=== PATIENT | male | born 1950 | race Asian ===

== ENCOUNTER 2019-01-22 16:48 | Inpatient (IN) | payer MEDICARE ==
[~2019-01-22] VITALS: Ht 144.8 cm; Wt 64.2 kg
[2019-01-22] MEDS ORDERED: IV NORMAL SALINE 1000ML BAG 1,000 ML IV SCH (17:10)
[2019-01-22] MEDS ORDERED: 0.9 % SODIUM CHLORIDE 10 ML DISP.SYRIN. IV PRN (17:15)
[2019-01-22] MEDS ORDERED: fentaNYL PF VIAL 100 MCG/2 ML VIAL IV PRN (17:15)
[2019-01-22] MEDS ORDERED: FAMOTIDINE 20 MG/2 ML VIAL IVP ONE (17:15)
[2019-01-22] MEDS ORDERED: ONDANSETRON PF 4 MG/2 ML VIAL. IV ONE (17:15)
--- NOTE | 2019-01-22 17:21 | PHYS DOC ---
Past Medical History Past Medical History: Depression, Diabetes-Type II, High Cholesterol, Hypertension (COLETTE DENISE APRN) Past Surgical History: Other (portion of small bowel removed) (COLETTE DENISE APRN) Drug Use: None (COLETTE DENISE APRN) Adult General Chief Complaint Chief Complaint: ABDOMINAL PAIN HPI HPI Patient is a 68 year old male who presents with family. Patient speaking [place], family translating, recently moved here from [place]. Family reports diffuse abdominal "burning" pain for several days. N/V/D No fevers. States he can not keep any foods down, able to take in fluids with medications. States he has burning abdominal pain with radiation up to the chest, burning CP. Chest pain started today Seen at 01/19. Labs and UA done, no acute finding. Prescribed Zofran. No c hange in symptoms he is resting in no distress (COLETTE DENISE APRN) Review of Systems Review of Systems Constitutional: Denies fever or chills [] Eyes: Denies change in visual acuity, redness, or eye pain [] HENT: Denies nasal congestion or sore throat [] Respiratory: Denies cough or shortness of breath [] Cardiovascular: C/o radiating pain from abdomen to chest GI: c/o diffuse abdominal pain with N/V/D : Denies dysuria or hematuria [] Musculoskeletal: Denies back pain or joint pain [] Integument: Denies rash or skin lesions [] Neurologic: Denies headache, focal weakness or sensory changes [] Endocrine: Denies polyuria or polydipsia [] All other systems were reviewed and found to be within normal limits, except as documented in this note. (COLETTE DENISE APRN) Current Medications Current Medications Current Medications Medications (Trade) Dose Ordered Sig/Salma Start Time Stop Time Status Last Admin Dose Admin Famotidine (Pepcid Vial) 20 mg 1X ONCE 01/22/19 17:15 01/22/19 17:27 DC 01/22/19 18:08 20 MG Fentanyl Citrate (Fentanyl 2ml Vial) 25 mcg PRN Q15MIN PRN 01/22/19 17:15 01/23/19 17:14 DC 01/22/19 18:08 25 MCG Info (CONTRAST GIVEN -- Rx MONITORING) 1 each PRN DAILY PRN 01/22/19 18:00 01/24/19 17:59 Iohexol (Omnipaque 300 Mg/ml) 60 ml 1X ONCE 01/22/19 18:00 01/22/19 18:01 DC 01/22/19 18:03 60 ML Ondansetron HCl (Zofran) 4 mg 1X ONCE 01/22/19 17:15 01/22/19 17:27 DC 01/22/19 18:07 4 MG Sodium Chloride (Normal Saline Flush) 10 ml QSHIFT PRN 01/22/19 17:15 (FRITZ LUNDBERG MD) Allergies Allergies Allergies Coded Allergies Type Severity Reaction Last Updated Verified No Known Drug Allergies 01/22/19 No (FRITZ LUNDBERG MD) Allergies NKDA (COLETTE DENISE APRN) Physical Exam Physical Exam Constitutional: Well developed, well nourished, no acute distress, non-toxic appearance. [] HENT: Normocephalic, atraumatic, bilateral external ears normal, oropharynx moist, no oral exudates, nose normal. [] Eyes: PERRLA, EOMI, conjunctiva normal, no discharge. [] Neck: Normal range of motion, no tenderness, supple, no stridor. [] Cardiovascular:Heart rate regular rhythm, no murmur [] Lungs & Thorax: Bilateral breath sounds clear to auscultation [] Abdomen: Bowel sounds normal, soft, no masses, no pulsatile masses. reports mild diffuse TTP, no guarding or rebound, no signs of trauma Skin: Warm, dry, no erythema, no rash. [] Back: No tenderness, no CVA tenderness. [] Extremities: No tenderness, no cyanosis, no clubbing, ROM intact, no edema. [] Neurologic: Alert and oriented X 3, normal motor function, normal sensory function, no focal deficits noted. [] Psychologic: Affect normal, judgement normal, mood normal. [] (COLETTE DENISE APRN) Current Patient Data Vital Signs Vital Signs Date Time Temp Pulse Resp B/P (MAP) Pulse Ox O2 Delivery O2 Flow Rate FiO2 01/22/19 18:00 62 162/74 (103) 99 Room Air 01/22/19 17:22 98.0 22 98.0 (FRITZ LUNDBERG MD) Lab Values Laboratory Tests Test 01/22/19 16:58 01/22/19 17:20 Urine Collection Type Unknown Urine Color Yellow Urine Clarity Clear Urine pH 6.5 Urine Specific [place] 1.015 Urine Protein Negative mg/dL (NEG-TRACE) Urine Glucose (UA) Negative mg/dL (NEG) Urine Ketones (Stick) 15 mg/dL (NEG) Urine Blood Negative (NEG) Urine Nitrite Negative (NEG) Urine Bilirubin Negative (NEG) Urine Urobilinogen Dipstick 1.0 mg/dL (0.2 mg/dL) Urine Leukocyte Esterase Trace (NEG) Urine RBC 0 /HPF (0-2) Urine WBC Rare /HPF (0-4) Urine Bacteria 0 /HPF (0-FEW) White Blood Count 8.1 x10^3/uL (4.0-11.0) Red Blood Count 4.75 x10^6/uL (4.30-5.70) Hemoglobin 13.7 g/dL (13.0-17.5) Hematocrit 39.5 % (39.0-53.0) Mean Corpuscular Volume 83 fL (79-100) Mean Corpuscular Hemoglobin 29 pg (25-35) Mean Corpuscular Hemoglobin Concent 35 g/dL (31-37) Red Cell Distribution Width 15.1 % (11.5-14.5) H Platelet Count 233 x10^3/uL (140-400) Neutrophils (%) (Auto) 73 % (31-73) Lymphocytes (%) (Auto) 18 % (24-48) L Monocytes (%) (Auto) 7 % (0-9) Eosinophils (%) (Auto) 1 % (0-3) Basophils (%) (Auto) 1 % (0-3) Neutrophils # (Auto) 6.0 x10^3/uL (1.8-7.7) Lymphocytes # (Auto) 1.5 x10^3/uL (1.0-4.8) Monocytes # (Auto) 0.6 x10^3/uL (0.0-1.1) Eosinophils # (Auto) 0.1 x10^3/uL (0.0-0.7) Basophils # (Auto) 0.0 x10^3/uL (0.0-0.2) Sodium Level 114 mmol/L (136-145) *L Potassium Level 5.1 mmol/L (3.5-5.1) Chloride Level 79 mmol/L (98-107) L Carbon Dioxide Level 25 mmol/L (21-32) Anion Gap 10 (6-14) Blood Urea Nitrogen 14 mg/dL (8-26) Creatinine 1.2 mg/dL (0.7-1.3) Estimated GFR (Cockcroft-Gault) 59.9 BUN/Creatinine Ratio 12 (6-20) Glucose Level 102 mg/dL (70-99) H Calcium Level 9.0 mg/dL (8.5-10.1) Total Bilirubin 1.0 mg/dL (0.2-1.0) Aspartate Amino Transferase (AST) 94 U/L (15-37) H Alanine Aminotransferase (ALT) 36 U/L (16-63) Alkaline Phosphatase 47 U/L (46-116) Troponin I Quantitative 0.037 ng/mL (0.000-0.055) MU-Nzg-V-Type Natriuretic Peptide 135 pg/mL (0-124) H Total Protein 8.2 g/dL (6.4-8.2) Albumin 4.1 g/dL (3.4-5.0) Albumin/Globulin Ratio 1.0 (1.0-1.7) Lipase 162 U/L (73-393) Laboratory Tests 01/22/19 17:20 Laboratory Tests 01/22/19 17:20 (FRITZ LUNDBERG MD) Lab Values Laboratory Tests Test 01/22/19 16:58 01/22/19 17:20 Urine Collection Type Unknown Urine Color Yellow Urine Clarity Clear Urine pH 6.5 Urine Specific [place] 1.015 Urine Protein Negative mg/dL (NEG-TRACE) Urine Glucose (UA) Negative mg/dL (NEG) Urine Ketones (Stick) 15 mg/dL (NEG) Urine Blood Negative (NEG) Urine Nitrite Negative (NEG) Urine Bilirubin Negative (NEG) Urine Urobilinogen Dipstick 1.0 mg/dL (0.2 mg/dL) Urine Leukocyte Esterase Trace (NEG) Urine RBC 0 /HPF (0-2) Urine WBC Rare /HPF (0-4) Urine Bacteria 0 /HPF (0-FEW) White Blood Count 8.1 x10^3/uL (4.0-11.0) Red Blood Count 4.75 x10^6/uL (4.30-5.70) Hemoglobin 13.7 g/dL (13.0-17.5) Hematocrit 39.5 % (39.0-53.0) Mean Corpuscular Volume 83 fL (79-100) Mean Corpuscular Hemoglobin 29 pg (25-35) Mean Corpuscular Hemoglobin Concent 35 g/dL (31-37) Red Cell Distribution Width 15.1 % (11.5-14.5) H Platelet Count 233 x10^3/uL (140-400) Neutrophils (%) (Auto) 73 % (31-73) Lymphocytes (%) (Auto) 18 % (24-48) L Monocytes (%) (Auto) 7 % (0-9) Eosinophils (%) (Auto) 1 % (0-3) Basophils (%) (Auto) 1 % (0-3) Neutrophils # (Auto) 6.0 x10^3/uL (1.8-7.7) Lymphocytes # (Auto) 1.5 x10^3/uL (1.0-4.8) Monocytes # (Auto) 0.6 x10^3/uL (0.0-1.1) Eosinophils # (Auto) 0.1 x10^3/uL (0.0-0.7) Basophils # (Auto) 0.0 x10^3/uL (0.0-0.2) Sodium Level 114 mmol/L (136-145) *L Potassium Level 5.1 mmol/L (3.5-5.1) Chloride Level 79 mmol/L (98-107) L Carbon Dioxide Level 25 mmol/L (21-32) Anion Gap 10 (6-14) Blood Urea Nitrogen 14 mg/dL (8-26) Creatinine 1.2 mg/dL (0.7-1.3) Estimated GFR (Cockcroft-Gault) 59.9 BUN/Creatinine Ratio 12 (6-20) Glucose Level 102 mg/dL (70-99) H Calcium Level 9.0 mg/dL (8.5-10.1) Total Bilirubin 1.0 mg/dL (0.2-1.0) Aspartate Amino Transferase (AST) 94 U/L (15-37) H Alanine Aminotransferase (ALT) 36 U/L (16-63) Alkaline Phosphatase 47 U/L (46-116) Troponin I Quantitative 0.037 ng/mL (0.000-0.055) KX-Idx-H-Type Natriuretic Peptide 135 pg/mL (0-124) H Total Protein 8.2 g/dL (6.4-8.2) Albumin 4.1 g/dL (3.4-5.0) Albumin/Globulin Ratio 1.0 (1.0-1.7) Lipase 162 U/L (73-393) Laboratory Tests 01/22/19 17:20 Laboratory Tests 01/22/19 17:20 (COLETTE DENISE APRN) EKG EKG []01/22/2019 1720 sinus rhythm, rate [address] changes (COLETTE DENISE APRN) Radiology/Procedures Radiology/Procedures []Signed PATIENT: JACOBY MARTINEZ ACCOUNT: [id number] : 1950 LOCATION: ER AGE: 68 SEX: M EXAM STATUS: REG ER ORD. PHYSICIAN: COLETTE DENISE APRN REASON: abd pain, vomiting PROCEDURE: CT ABD PELV W/ IV CONTRST ONLY PQRS Compliance statement: One or more of the following individualized dose reduction techniques were utilized for this examination: 1. Automated exposure control. 2. Adjustment of the mA and/or kV according to patient size. 3. Use of iterative reconstruction technique. Indication:Abdominal pain. Vomiting. TECHNIQUE: CT abdomen and pelvis with IV contrast with multiplanar reformats. COMPARISON: None FINDINGS: Heart is normal in size. No pericardial or pleural effusion. Right lower lobe pleural-based nodule measuring 6 mm. Liver, spleen, pancreas, adrenals within normal limits. Gallstones noted. No pericholecystic fluid or inflammatory changes. Multiple bilateral low attenuating lesions in the kidneys most likely simple cysts, the largest on the right side measuring 3.6 cm and on the left side measuring 2 cm. No nephrolithiasis or hydronephrosis. No enlarged retroperitoneal or pelvic adenopathy. No free pelvic fluid or ascites. Small bilateral fat-containing hernia. The prostate and seminal vesicles show no large mass. Left lateral urinary bladder diverticulum measuring 3.5 x 1.5 cm. Urinary bladder demonstrates no radiopaque stone. No bowel obstruction. Appendix is not visualized. No right lower quadrant inflammatory changes. Small sliding hiatal hernia. No pneumoperitoneum. No suspicious bony lesion. IMPRESSION: 1. Cholelithiasis without imaging evidence of acute cholecystitis. 2. No bowel obstruction. 3. No nephrolithiasis or hydronephrosis. 4. Left lateral urinary bladder diverticulum. 5. Right lower lobe pleural-based nodule. CT chest in 3-6 months is recommended. Electronically signed by: Chalo Antoine DO (01/22/2019 6:23 PM) [facility] CT HEAD: IMAGING REPORT Signed PATIENT: JACOBY MARTINEZ ACCOUNT: [id number] : 1950 LOCATION: [address] [place] [address] AGE: 68 SEX: M EXAM STATUS: ADM IN ORD. PHYSICIAN: COLETTE DENISE APRN REASON: hyponatremia, RIGHT SIDE EAR-HEAD PAIN. RECENT CT CONTRAST DYE. PROCEDURE: CT HEAD WO CONTRAST CT HEAD WO CONTRAST History: Hyponatremia, right ear and head pain Comparison: None. Technique: Noncontrast CT imaging was performed of the head. Exposure: One or more of the following individualized dose reduction techniques were utilized for this examination: 1. Automated exposure control 2. Adjustment of the mA and/or kV according to patient size 3. Use of iterative reconstruction technique. Findings: No acute extra-axial or parenchymal hemorrhage is identified. There is no significant intra-axial mass effect, midline shift, or extra-axial fluid collection. The gilliland-white differentiation of the major vascular territories is preserved. The ventricles, sulci, and cisterns are within normal limits in size and configuration. Mastoid air cells are overall aerated. There is atherosclerotic calcification of the carotid siphons bilaterally. There is probable mucosal thickening or mucous retention cysts of the right maxillary sinus. There is mild bilateral ethmoid air cell mucosal thickening. No acute calvarial abnormality is identified. Impression: 1. No acute intracranial abnormality is identified. 2. There is right maxillary sinus mucosal thickening or mucous retention cysts. Electronically signed by: Kyra Orellana MD (01/22/2019 7:32 PM) [facility] DICTATED and SIGNED BY: KYRA ORELLANA MD DATE: 01/22/191931 CHEST XRAY PATIENT: JACOBY MARTINEZ ACCOUNT: [id number] : 1950 LOCATION: [facility] ICU AGE: 68 SEX: M EXAM STATUS: ADM IN ORD. PHYSICIAN: COLETTE DENISE APRN REASON: Chest pain PROCEDURE: CHEST PA & LATERAL CHEST PA LATERAL History: Chest pain Comparison: None. Findings: 2 views of the chest are submitted. Pericardial cardiac silhouette is enlarged. There is no pneumothorax. There is no significant dependent pleural fluid. There is likely minimal atelectasis left lung base. Impression: 1. There is likely minimal atelectasis left lung base. Pericardial cardiac silhouette is enlarged. Electronically signed by: Kyra Orellana MD (01/22/2019 7:24 PM) [facility] DICTATED and SIGNED BY: KYRA ORELLANA MD DATE: 01/22/191923 (COLETTE DENISE APRN) Impressions: Abdominal pain, hyponatremia, chest pain (COLETTE DENISE APRN) Course & Med Decision Making Course & Med Decision Making Pertinent Labs and Imaging studies reviewed. (See chart for details) []Patient here with family, several day hx of diffuse abdominal pain with N/V/D and pain that radiates up to chest he is resting and appears well, no distress Will obtain labs, chest xray, EKG and CT ABD PELV IV fluids, fentanyl zofran pepcid Labs CT and xray reviewed Hyponatremia. Cholelithiasis Chest pain today, no ST changes on EKG Consulted Nephrology, Dr Melgar, add on urine electrolytes, agrees with CT head. NS 150cc hr, repeat BMP in 4 hours and nursing staff is to call with results Admitted to Hospitalist, Add on Ct Head, ICU CT head no acute finding (COLETTE DENISE APRN) Course & Med Decision Making I was not involved in the care of this patient after 1800 on 01/22/19. (FRITZ LUNDBERG MD) Dragon Disclaimer Dragon Disclaimer This electronic medical record was generated, in whole or in part, using a voice recognition dictation system. (COLETTE DENISE APRN) Departure Departure Impression: Primary Impression: Hyponatremia Additional Impressions: Abdominal pain Chest pain Disposition: ADMITTED INPATIENT Condition: STABLE Referrals: THI IVEY (PCP) Problem Qualifiers COLETTE DENISE APRN Jan 22, 2019 17:21 FRITZ LUNDBERG MD Jan 24, 2019 06:48
[2019-01-22 17:22] LABS: BILIRUBIN,URINE NEGATIVE (NEG); CLARITY,URINE CLEAR; COLOR,URINE YELLOW; NITRITE,URINE NEGATIVE (NEG); PH,URINE 6.5; PROTEIN,URINE NEGATIVE (NEG-TRACE)
[2019-01-22 17:27] LABS: BASO % 1 % (0-3); EOS # 0.1 x10^3/uL (0.0-0.7); EOS % 1 % (0-3); HEMATOCRIT 39.5 % (39.0-53.0); HEMOGLOBIN 13.7 g/dL (13.0-17.5); LYMPH # 1.5 x10^3/uL (1.0-4.8); LYMPH % 18 % (24-48); MEAN CORPUSCULAR HEMOGLOBIN 29 pg (25-35); MEAN CORPUSCULAR HGB CONC 35 g/dL (31-37); MEAN CORPUSCULAR VOLUME 83 fL (79-100); MONO # 0.6 x10^3/uL (0.0-1.1); MONO % 7 % (0-9); NEUT % 73 % (31-73); PLATELET COUNT 233 x10^3/uL (140-400); RED BLOOD COUNT 4.75 x10^6/uL (4.30-5.70); RED CELL DISTRIBUTION WIDTH 15.1 % (11.5-14.5); WHITE BLOOD COUNT 8.1 x10^3/uL (4.0-11.0)
[2019-01-22 17:30] LABS: BACTERIA,URINE 0 /HPF (0-FEW); RBC,URINE 0 /HPF (0-2); WBC,URINE RARE /HPF (0-4)
[2019-01-22 17:42] LABS: ALBUMIN 4.1 g/dL (3.4-5.0); CREATININE 1.2 mg/dL (0.7-1.3); GFR 59.9; POTASSIUM 5.1 mmol/L (3.5-5.1); TOTAL PROTEIN 8.2 g/dL (6.4-8.2)
[2019-01-22] MEDS ORDERED: CONTRAST GIVEN. MC PRN (18:00)
[2019-01-22] MEDS ORDERED: IOHEXOL 300 MG/ML 100ML VIAL. IV ONE (18:00)
--- NOTE | 2019-01-22 18:26 | RAD ---
PQRS Compliance statement: One or more of the following individualized dose reduction techniques were utilized for this examination: 1. Automated exposure control. 2. Adjustment of the mA and/or kV according to patient size. 3. Use of iterative reconstruction technique. Indication:Abdominal pain. Vomiting. TECHNIQUE: CT abdomen and pelvis with IV contrast with multiplanar reformats. COMPARISON: None FINDINGS: Heart is normal in size. No pericardial or pleural effusion. Right lower lobe pleural-based nodule measuring 6 mm. Liver, spleen, pancreas, adrenals within normal limits. Gallstones noted. No pericholecystic fluid or inflammatory changes. Multiple bilateral low attenuating lesions in the kidneys most likely simple cysts, the largest on the right side measuring 3.6 cm and on the left side measuring 2 cm. No nephrolithiasis or hydronephrosis. No enlarged retroperitoneal or pelvic adenopathy. No free pelvic fluid or ascites. Small bilateral fat-containing hernia. The prostate and seminal vesicles show no large mass. Left lateral urinary bladder diverticulum measuring 3.5 x 1.5 cm. Urinary bladder demonstrates no radiopaque stone. No bowel obstruction. Appendix is not visualized. No right lower quadrant inflammatory changes. Small sliding hiatal hernia. No pneumoperitoneum. No suspicious bony lesion. IMPRESSION: 1. Cholelithiasis without imaging evidence of acute cholecystitis. 2. No bowel obstruction. 3. No nephrolithiasis or hydronephrosis. 4. Left lateral urinary bladder diverticulum. 5. Right lower lobe pleural-based nodule. CT chest in 3-6 months is recommended. Electronically signed by: Chalo Antoine DO (01/22/2019 6:23 PM) [facility]
[2019-01-22] MEDS: IV NORMAL SALINE 1000ML BAG 1,000 ML IV SCH (18:56)
[2019-01-22] MEDS ORDERED: MORPHINE SULFATE 2 MG/ML VIAL. IV PRN (19:00)
[2019-01-22] MEDS ORDERED: IV NORMAL SALINE 1000ML BAG 1,000 ML IV ONE (19:00)
[2019-01-22] MEDS ORDERED: ONDANSETRON PF 4 MG/2 ML VIAL. IV PRN ×2 (19:00→19:30)
--- NOTE | 2019-01-22 19:27 | RAD ---
CHEST PA LATERAL History: Chest pain Comparison: None. Findings: 2 views of the chest are submitted. Pericardial cardiac silhouette is enlarged. There is no pneumothorax. There is no significant dependent pleural fluid. There is likely minimal atelectasis left lung base. Impression: 1. There is likely minimal atelectasis left lung base. Pericardial cardiac silhouette is enlarged. Electronically signed by: Donovan Orellana MD (01/22/2019 7:24 PM) [facility]
--- NOTE | 2019-01-22 19:34 | RAD ---
CT HEAD WO CONTRAST History: Hyponatremia, right ear and head pain Comparison: None. Technique: Noncontrast CT imaging was performed of the head. Exposure: One or more of the following individualized dose reduction techniques were utilized for this examination: 1. Automated exposure control 2. Adjustment of the mA and/or kV according to patient size 3. Use of iterative reconstruction technique. Findings: No acute extra-axial or parenchymal hemorrhage is identified. There is no significant intra-axial mass effect, midline shift, or extra-axial fluid collection. The gilliland-white differentiation of the major vascular territories is preserved. The ventricles, sulci, and cisterns are within normal limits in size and configuration. Mastoid air cells are overall aerated. There is atherosclerotic calcification of the carotid siphons bilaterally. There is probable mucosal thickening or mucous retention cysts of the right maxillary sinus. There is mild bilateral ethmoid air cell mucosal thickening. No acute calvarial abnormality is identified. Impression: 1. No acute intracranial abnormality is identified. 2. There is right maxillary sinus mucosal thickening or mucous retention cysts. Electronically signed by: Donovan Orellana MD (01/22/2019 7:32 PM) [facility]
[2019-01-22 20:00] VITALS: BP 165/84
[2019-01-22] MEDS ORDERED: ENOXAPARIN 40 MG/0.4 ML SYRINGE. SQ ONE ×2 (20:00→21:19)
[2019-01-22] MEDS ORDERED: LISI2.5T PO (20:21)
[2019-01-22] MEDS ORDERED: SERT50TA PO (20:21)
[2019-01-22] MEDS ORDERED: ONDA8TAB9 PO (20:21)
[2019-01-22] MEDS ORDERED: METF500T16 PO (20:21)
[2019-01-22] MEDS ORDERED: CETI10TA16 PO (20:21)
[2019-01-22] MEDS ORDERED: ATOR20TA58 PO (20:21)
[2019-01-22] MEDS ORDERED: LEVO125T5 PO (20:21)
[2019-01-22 21:00] VITALS: BP 118/67
[2019-01-22 22:00] VITALS: BP 143/77
[2019-01-22 23:00] VITALS: BP 130/63
[2019-01-23] VITALS (18 sets, daily range): BP systolic 108–145; BP diastolic 55–99
[2019-01-23] MEDS: IV NORMAL SALINE 1000ML BAG 1,000 ML IV SCH ×3 (01:54→16:40)
[2019-01-23 02:37] LABS: CALCIUM 8.5 mg/dL (8.5-10.1); CREATININE 1.2 mg/dL (0.7-1.3); GFR 59.9; POTASSIUM 4.9 mmol/L (3.5-5.1)
--- NOTE | 2019-01-23 08:42 | PDOC1 ---
History and Physical Date of Admission Date of Admission DATE: 01/23/19 TIME: 08:42 History of Present Illness History of Present Illness Mr. Saleem, is a 68 year old male who presents with family. Patient speaking Chente, family translating, recently moved here from [place]. Family reports diffuse abdominal "burning" pain for several days. N/V/D No fevers. States he can not keep any foods down, able to take in fluids with medications. States he has burning abdominal pain with radiation up to the chest, burning CP. Chest pain started today Seen at 01/19. Labs and UA done, no acute finding. Prescribed Zofran. No change in symptoms he is resting in no distress Past Medical History Cardiovascular: No pertinent hx Pulmonary: No pertinent hx GI: No pertinent hx Heme/Onc: No pertinent hx Hepatobiliary: No pertinent hx Psych: No pertinent hx Infectious disease: No pertinent hx Past Surgical History Past Surgical History: No pertinent history Family History Family History: No Significant Social History Smoke: No ALCOHOL: none Drugs: None Current Problem List Problem List Problems Medical Problems: (1) Chest pain Status: Acute (2) Hyponatremia Status: Acute Current Medications Current Medications Current Medications Fentanyl Citrate (Fentanyl 2ml Vial) 25 mcg PRN Q15MIN PRN IV PAIN GREATER THAN 3/10 Last administered on 01/22/19at 18:08; Start 01/22/19 at 17:15; Stop 01/23/19 at 17:14 Sodium Chloride 1,000 ml @ 1,000 mls/hr Q1H IV ; Start 01/22/19 at 17:10; Stop 01/22/19 at 18:09; Status DC Sodium Chloride (Normal Saline Flush) 10 ml QSHIFT PRN IV AFTER MEDS AND BLOOD DRAWS; Start 01/22/19 at 17:15 Ondansetron HCl (Zofran) 4 mg 1X ONCE IV Last administered on 01/22/19at 18:07; Start 01/22/19 at 17:15; Stop 01/22/19 at 17:27; Status DC Famotidine (Pepcid Vial) 20 mg 1X ONCE IVP Last administered on 01/22/19at 1 8:08; Start 01/22/19 at 17:15; Stop 01/22/19 at 17:27; Status DC Iohexol (Omnipaque 300 Mg/ml) 60 ml 1X ONCE IV Last administered on 01/22/19at 18:03; Start 01/22/19 at 18:00; Stop 01/22/19 at 18:01; Status DC Info (CONTRAST GIVEN -- Rx MONITORING) 1 each PRN DAILY PRN MC SEE COMMENTS; Start 01/22/19 at 18:00; Stop 01/24/19 at 17:59 Sodium Chloride 1,000 ml @ 150 mls/hr 1X ONCE IV Last administered on 01/22/19at 19:00; Start 01/22/19 at 19:00; Stop 01/23/19 at 02:44; Status DC Ondansetron HCl (Zofran) 4 mg PRN Q8HRS PRN IV NAUSEA/VOMITING; Start 01/22/19 at 19:00; Stop 01/22/19 at 19:32; Status DC Morphine Sulfate (Morphine Sulfate) 2 mg PRN Q2HR PRN IV PAIN; Start 01/22/19 at 19:00; Stop 01/23/19 at 18:59 Sodium Chloride 1,000 ml @ 150 mls/hr Q6H40M IV Last administered on 01/23/19at 01:54; Start 01/22/19 at 18:56; Stop 01/23/19 at 02:44; Status DC Ondansetron HCl (Zofran) 4 mg PRN Q6HRS PRN IV NAUSEA/VOMITING; Start 01/22/19 at 19:30 Enoxaparin Sodium (Lovenox 40mg Syringe) 40 mg DAILY ONCE SQ Last administered on 01/22/19at 21:20; Start 01/22/19 at 20:00; Stop 01/22/19 at 20:01; Status DC Enoxaparin Sodium (Lovenox 40mg Syringe) 40 mg STK-MED ONCE SQ ; Start 01/22/19 at 21:19; Stop 01/22/19 at 21:19; Status DC Sodium Chloride 1,000 ml @ 75 mls/hr [id number] IV ; Start 01/23/19 at 02:45 Active Scripts Active Reported Zoloft (Sertraline Hcl) 50 Mg Tablet 1 Tab PO DAILY Atorvastatin Calcium 20 Mg Tablet 1 Tab PO DAILY Lisinopril 2.5 Mg Tablet 1 Tab PO DAILY Cetirizine Hcl 10 Mg Tablet 1 Tab PO DAILY Zofran (Ondansetron Hcl) 8 Mg Tablet 1 Tab PO Q8HRS 10 Days Metformin Hcl 500 Mg Tablet 500 Mg PO BIDWMEALS Levothyroxine Sodium 125 Mcg Tablet 1 Tab PO DAILY PRN Allergies Allergies: Coded Allergies: No Known Drug Allergies (Unverified , 01/22/19) ROS General: YES: Fatigue PSYCHOLOGICAL ROS: No: Anxiety, Behavioral Disorder, Concentration difficultie, Decreased libido, Depression, Disorientation, Hallucinations, Hostility, Irritablity, Memory difficulties, Mood Swings, Obsessive thoughts, Physical ab use, Sexual abuse, Sleep disturbances, Suicidal ideation, Other Eyes: No Blurry vision, No Decreased vision, No Double vision, No Dry eyes, No Excessive tearing, No Eye Pain, No Itchy Eyes, No Loss of vision, No Photophobia, No Scotomata, No Uses contacts, No Uses glasses, No Other Respiratory: No: Cough, Hemoptysis, Orthopnea, Pleuritic Pain, Shortness of breath, SOB with excertion, Sputum Changes, Stridor, Tachypnea, Wheezing, Other Cardiovascular: No Chest Pain, No Palpitations, No Orthopnea, No Paroxysmal Noc. Dyspnea, No Edema, No Lt Headedness, No Other Gastrointestinal: Yes Nausea, Yes Vomiting Genitourinary: No Dysuria, No Frequency, No Incontinence, No Hematuria, No Retention, No Discharge, No Urgency, No Pain, No Flank Pain, No Other, No , No , No , No , No , No , No Musculoskeletal: No Gait Disturbance, No Joint Pain, No Joint Stiffness, No Joint Swelling, No Muscle Pain, No Muscular Weakness, No Pain In:, No Swelling In:, No Other Neurological: No Behavorial Changes, No Bowel/Bladder ControlChng, No Confusion, No Dizziness, No Gait Disturbance, No Headaches, No Impaired Coord /balance, No Memory Loss, No Numbness/Tingling, No Seizures, No Speech Problems, No Tremors, No Visual Changes, No Weakness, No Other Skin: No Dry Skin, No Eczema, No Hair Changes, No Lumps, No Mole Changes, No Mottling, No Nail Changes, No Pruritus, No Rash, No Skin Lesion Changes, No Other, No Acne Physical Exam General: Alert, Cooperative, No acute distress HEENT: Atraumatic, Mucous membr. moist/pink Lungs: Clear to auscultation, Normal air movement Heart: RRR, no murmurs Abdomen: Normal bowel sounds, Soft Extremities: No clubbing, No edema, Normal pulses Skin: No rashes, No breakdown Neuro: Normal tone, Cranial nerves 3-12 NL Psych/Mental Status: Mood NL Vitals Vitals Vital Signs Date Time Temp Pulse Resp B/P (MAP) Pulse Ox O2 Delivery O2 Flow Rate FiO2 01/23/19 08:02 56 15 140/73 (95) 98 Room Air 01/23/19 04:00 98.4 98.4 Labs Labs Laboratory Tests Test 01/22/19 16:58 01/22/19 17:20 01/22/19 19:40 01/23/19 02:10 Urine Collection Type Unknown Urine Color Yellow Urine Clarity Clear Urine pH 6.5 Urine Specific [place] 1.015 Urine Protein Negative mg/dL (NEG-TRACE) Urine Glucose (UA) Negative mg/dL (NEG) Urine Ketones (Stick) 15 mg/dL (NEG) Urine Blood Negative (NEG) Urine Nitrite Negative (NEG) Urine Bilirubin Negative (NEG) Urine Urobilinogen Dipstick 1.0 mg/dL (0.2 mg/dL) Urine Leukocyte Esterase Trace (NEG) Urine RBC 0 /HPF (0-2) Urine WBC Rare /HPF (0-4) Urine Bacteria 0 /HPF (0-FEW) White Blood Count 8.1 x10^3/uL (4.0-11.0) Red Blood Count 4.75 x10^6/uL (4.30-5.70) Hemoglobin 13.7 g/dL (13.0-17.5) Hematocrit 39.5 % (39.0-53.0) Mean Corpuscular Volume 83 fL (79-100) Mean Corpuscular Hemoglobin 29 pg (25-35) Mean Corpuscular Hemoglobin Concent 35 g/dL (31-37) Red Cell Distribution Width 15.1 % (11.5-14.5) Platelet Count 233 x10^3/uL (140-400) Neutrophils (%) (Auto) 73 % (31-73) Lymphocytes (%) (Auto) 18 % (24-48) Monocytes (%) (Auto) 7 % (0-9) Eosinophils (%) (Auto) 1 % (0-3) Basophils (%) (Auto) 1 % (0-3) Neutrophils # (Auto) 6.0 x10^3/uL (1.8-7.7) Lymphocytes # (Auto) 1.5 x10^3/uL (1.0-4.8) Monocytes # (Auto) 0.6 x10^3/uL (0.0-1.1) Eosinophils # (Auto) 0.1 x10^3/uL (0.0-0.7) Basophils # (Auto) 0.0 x10^3/uL (0.0-0.2) Sodium Level 114 mmol/L (136-145) 120 mmol/L (136-145) Potassium Level 5.1 mmol/L (3.5-5.1) 4.9 mmol/L (3.5-5.1) Chloride Level 79 mmol/L (98-107) 88 mmol/L (98-107) Carbon Dioxide Level 25 mmol/L (21-32) 27 mmol/L (21-32) Anion Gap 10 (6-14) 5 (6-14) Blood Urea Nitrogen 14 mg/dL (8-26) 11 mg/dL (8-26) Creatinine 1.2 mg/dL (0.7-1.3) 1.2 mg/dL (0.7-1.3) Estimated GFR (Cockcroft-Gault) 59.9 59.9 BUN/Creatinine Ratio 12 (6-20) Glucose Level 102 mg/dL (70-99) 94 mg/dL (70-99) Calcium Level 9.0 mg/dL (8.5-10.1) 8.5 mg/dL (8.5-10.1) Total Bilirubin 1.0 mg/dL (0.2-1.0) Aspartate Amino Transf (AST/SGOT) 94 U/L (15-37) Alanine Aminotransferase (ALT/SGPT) 36 U/L (16-63) Alkaline Phosphatase 47 U/L (46-116) Troponin I Quantitative 0.037 ng/mL (0.000-0.055) CV-Ggf-S-Type Natriuretic Peptide 135 pg/mL (0-124) Total Protein 8.2 g/dL (6.4-8.2) Albumin 4.1 g/dL (3.4-5.0) Albumin/Globulin Ratio 1.0 (1.0-1.7) Lipase 162 U/L (73-393) Glucose (Fingerstick) 89 mg/dL (70-99) Test 01/23/19 08:14 Glucose (Fingerstick) 82 mg/dL (70-99) Laboratory Tests Test 01/22/19 16:58 01/22/19 17:20 01/22/19 19:40 01/23/19 02:10 Urine Collection Type Unknown Urine Color Yellow Urine Clarity Clear Urine pH 6.5 Urine Specific [place] 1.015 Urine Protein Negative mg/dL (NEG-TRACE) Urine Glucose (UA) Negative mg/dL (NEG) Urine Ketones (Stick) 15 mg/dL (NEG) Urine Blood Negative (NEG) Urine Nitrite Negative (NEG) Urine Bilirubin Negative (NEG) Urine Urobilinogen Dipstick 1.0 mg/dL (0.2 mg/dL) Urine Leukocyte Esterase Trace (NEG) Urine RBC 0 /HPF (0-2) Urine WBC Rare /HPF (0-4) Urine Bacteria 0 /HPF (0-FEW) White Blood Count 8.1 x10^3/uL (4.0-11.0) Red Blood Count 4.75 x10^6/uL (4.30-5.70) Hemoglobin 13.7 g/dL (13.0-17.5) Hematocrit 39.5 % (39.0-53.0) Mean Corpuscular Volume 83 fL (79-100) Mean Corpuscular Hemoglobin 29 pg (25-35) Mean Corpuscular Hemoglobin Concent 35 g/dL (31-37) Red Cell Distribution Width 15.1 % (11.5-14.5) Platelet Count 233 x10^3/uL (140-400) Neutrophils (%) (Auto) 73 % (31-73) Lymphocytes (%) (Auto) 18 % (24-48) Monocytes (%) (Auto) 7 % (0-9) Eosinophils (%) (Auto) 1 % (0-3) Basophils (%) (Auto) 1 % (0-3) Neutrophils # (Auto) 6.0 x10^3/uL (1.8-7.7) Lymphocytes # (Auto) 1.5 x10^3/uL (1.0-4.8) Monocytes # (Auto) 0.6 x10^3/uL (0.0-1.1) Eosinophils # (Auto) 0.1 x10^3/uL (0.0-0.7) Basophils # (Auto) 0.0 x10^3/uL (0.0-0.2) Sodium Level 114 mmol/L (136-145) 120 mmol/L (136-145) Potassium Level 5.1 mmol/L (3.5-5.1) 4.9 mmol/L (3.5-5.1) Chloride Level 79 mmol/L (98-107) 88 mmol/L (98-107) Carbon Dioxide Level 25 mmol/L (21-32) 27 mmol/L (21-32) Anion Gap 10 (6-14) 5 (6-14) Blood Urea Nitrogen 14 mg/dL (8-26) 11 mg/dL (8-26) Creatinine 1.2 mg/dL (0.7-1.3) 1.2 mg/dL (0.7-1.3) Estimated GFR (Cockcroft-Gault) 59.9 59.9 BUN/Creatinine Ratio 12 (6-20) Glucose Level 102 mg/dL (70-99) 94 mg/dL (70-99) Calcium Level 9.0 mg/dL (8.5-10.1) 8.5 mg/dL (8.5-10.1) Total Bilirubin 1.0 mg/dL (0.2-1.0) Aspartate Amino Transf (AST/SGOT) 94 U/L (15-37) Alanine Aminotransferase (ALT/SGPT) 36 U/L (16-63) Alkaline Phosphatase 47 U/L (46-116) Troponin I Quantitative 0.037 ng/mL (0.000-0.055) BJ-Wui-C-Type Natriuretic Peptide 135 pg/mL (0-124) Total Protein 8.2 g/dL (6.4-8.2) Albumin 4.1 g/dL (3.4-5.0) Albumin/Globulin Ratio 1.0 (1.0-1.7) Lipase 162 U/L (73-393) Glucose (Fingerstick) 89 mg/dL (70-99) Test 01/23/19 08:14 Glucose (Fingerstick) 82 mg/dL (70-99) VTE Prophylaxis Ordered VTE Prophylaxis Devices: Yes VTE Pharmacological Prophylaxi: No Assessment/Plan Assessment/Plan nausea and vomiting and acute abd apin, better critical hyponatremia, hypovol, better with gentle IV fluid, watch labs with caution, renal consulted w/u other endo, admitted to ICU overnight, 35 min, language barrier ABEBE LOPES MD Jan 23, 2019 08:42
[2019-01-23] MEDS: POLYETHYLENE GLYCOL 3350 17 GM PACKET. PO SCH (08:53)
--- NOTE | 2019-01-23 12:12 | PDOC2 ---
CONSULT Date of Consult Date of Consult DATE: 01/23/19 TIME: 11:58 Reason for Consult Reason for Consult: Hyponatremia Source Source: Chart review History of Present Illness Reason for Visit: Patient is a 68 year old male who doesnt speak qatari . Hx obtained from chart review - he recently moved here from [place]. Family reports diffuse abdominal "burning" pain for several days. N/V/D No fevers. States he can not keep any foods down, able to take in fluids with medications.States he has burning abdominal pain with radiation up to the chest, burning CP. Chest pain started yesterday Seen at 01/19. Labs and UA done, no acute finding. Prescribed Zofran. No change in symptoms In the ER Na was 110, per ER provider clinical exam pt was appearing dehydrated, good uop , No retention , No neurological symptoms. After discussing with ER , I recommended to start IV NS and repeat BMP at 12 midnight Labs were called to me at 2:40 am with Na of 120, advised to Hold IVF . No labs done since then Family at bedside, reports that he does take some setswana root medicine but is not new. He had some med changes made by PCP recently as he moved to from [place] He is not on Diuretics, takes small dose of Linopril, Metformin and LevoThyroxine Current Problem List Problem List Problems Medical Problems: (1) Chest pain Status: Acute (2) Hyponatremia Status: Acute Current Medications Current Medications Current Medications Fentanyl Citrate (Fentanyl 2ml Vial) 25 mcg PRN Q15MIN PRN IV PAIN GREATER THAN 3/10 Last administered on 01/22/19at 18:08; Start 01/22/19 at 17:15; Stop 01/23/19 at 17:14 Sodium Chloride 1,000 ml @ 1,000 mls/hr Q1H IV ; Start 01/22/19 at 17:10; Stop 01/22/19 at 18:09; Status DC Sodium Chloride (Normal Saline Flush) 10 ml QSHIFT PRN IV AFTER MEDS AND BLOOD DRAWS; Start 01/22/19 at 17:15 Ondansetron HCl (Zofran) 4 mg 1X ONCE IV Last administered on 01/22/19at 18:07; Start 01/22/19 at 17:15; Stop 01/22/19 at 17:27; Status DC Famotidine (Pepcid Vial) 20 mg 1X ONCE IVP Last administered on 01/22/19at 18:08; Start 01/22/19 at 17:15; Stop 01/22/19 at 17:27; Status DC Iohexol (Omnipaque 300 Mg/ml) 60 ml 1X ONCE IV Last administered on 01/22/19at 18:03; Start 01/22/19 at 18:00; Stop 01/22/19 at 18:01; Status DC Info (CONTRAST GIVEN -- Rx MONITORING) 1 each PRN DAILY PRN MC SEE COMMENTS; Start 01/22/19 at 18:00; Stop 01/24/19 at 17:59 Sodium Chloride 1,000 ml @ 150 mls/hr 1X ONCE IV Last administered on 01/22/19at 19:00; Start 01/22/19 at 19:00; Stop 01/23/19 at 02:44; Status DC Ondansetron HCl (Zofran) 4 mg PRN Q8HRS PRN IV NAUSEA/VOMITING; Start 01/22/19 at 19:00; Stop 01/22/19 at 19:32; Status DC Morphine Sulfate (Morphine Sulfate) 2 mg PRN Q2HR PRN IV PAIN; Start 01/22/19 at 19:00; Stop 01/23/19 at 18:59 Sodium Chloride 1,000 ml @ 150 mls/hr Q6H40M IV Last administered on 01/23/19at 01:54; Start 01/22/19 at 18:56; Stop 01/23/19 at 02:44; Status DC Ondansetron HCl (Zofran) 4 mg PRN Q6HRS PRN IV NAUSEA/VOMITING; Start 01/22/19 at 19:30 Enoxaparin Sodium (Lovenox 40mg Syringe) 40 mg DAILY ONCE SQ Last administered on 01/22/19at 21:20; Start 01/22/19 at 20:00; Stop 01/22/19 at 20:01; Status DC Enoxaparin Sodium (Lovenox 40mg Syringe) 40 mg STK-MED ONCE SQ ; Start 01/22/19 at 21:19; Stop 01/22/19 at 21:19; Status DC Sodium Chloride 1,000 ml @ 75 mls/hr [id number] IV ; Start 01/23/19 at 02:45 Polyethylene Glycol (miraLAX PACKET) 17 gm DAILY PO Last administered on 01/23/19at 08:54; Start 01/23/19 at 09:00 Active Scripts Active Reported Zoloft (Sertraline Hcl) 50 Mg Tablet 1 Tab PO DAILY Atorvastatin Calcium 20 Mg Tablet 1 Tab PO DAILY Lisinopril 2.5 Mg Tablet 1 Tab PO DAILY Cetirizine Hcl 10 Mg Tablet 1 Tab PO DAILY Zofran (Ondansetron Hcl) 8 Mg Tablet 1 Tab PO Q8HRS 10 Days Metformin Hcl 500 Mg Tablet 500 Mg PO BIDWMEALS Levothyroxine Sodium 125 Mcg Tablet 1 Tab PO DAILY PRN Allergies Allergies: Coded Allergies: No Known Drug Allergies (Unverified , 01/22/19) ROS Review of System Unable to Obtain from Pt Physical Exam Physical Exam GEN: NAD HEN: OM NECK: supple CVS: RRR RESP: CTA, No Acc. Muscle Use GI: BS + ve, NO Bruit, Non Tender, Non Distended : No CVA tenderness, [NoSuprapubic Tenderness Neuro AxOx3 Skin No rash Vital Signs Vital Signs Date Time Temp Pulse Resp B/P (MAP) Pulse Ox O2 Delivery O2 Flow Rate FiO2 01/23/19 11:02 59 14 132/78 (96) 98 Room Air 01/23/19 09:03 98.0 98.0 Assessment & Plan Hyponatremia- Severe Started on NS last night(see HPI), recommended to ER to add Serum and Ur Osm, UA, U- Lytes and TSH Na was up to 120, decreased IVF rate to avoid overcorrection No labs done since 2am- Ordered stat Has Excellent UOP, Monitor Cholelithiasis without imaging evidence of acute cholecystitis. No bowel obstruction Per primary Left lateral urinary bladder diverticulum Right lower lobe pleural-based nodule. CT chest in 3-6 months is recommended. Per primary DM- On metformin Hypothyroidism Discussed with Pt's son at bedside and RN Labs Labs Laboratory Tests Test 01/22/19 16:58 01/22/19 17:20 01/22/19 19:40 01/23/19 02:10 Urine Collection Type Unknown Urine Color Yellow Urine Clarity Clear Urine pH 6.5 Urine Specific [place] 1.015 Urine Protein Negative mg/dL (NEG-TRACE) Urine Glucose (UA) Negative mg/dL (NEG) Urine Ketones (Stick) 15 mg/dL (NEG) Urine Blood Negative (NEG) Urine Nitrite Negative (NEG) Urine Bilirubin Negative (NEG) Urine Urobilinogen Dipstick 1.0 mg/dL (0.2 mg/dL) Urine Leukocyte Esterase Trace (NEG) Urine RBC 0 /HPF (0-2) Urine WBC Rare /HPF (0-4) Urine Bacteria 0 /HPF (0-FEW) White Blood Count 8.1 x10^3/uL (4.0-11.0) Red Blood Count 4.75 x10^6/uL (4.30-5.70) Hemoglobin 13.7 g/dL (13.0-17.5) Hematocrit 39.5 % (39.0-53.0) Mean Corpuscular Volume 83 fL (79-100) Mean Corpuscular Hemoglobin 29 pg (25-35) Mean Corpuscular Hemoglobin Concent 35 g/dL (31-37) Red Cell Distribution Width 15.1 % (11.5-14.5) Platelet Count 233 x10^3/uL (140-400) Neutrophils (%) (Auto) 73 % (31-73) Lymphocytes (%) (Auto) 18 % (24-48) Monocytes (%) (Auto) 7 % (0-9) Eosinophils (%) (Auto) 1 % (0-3) Basophils (%) (Auto) 1 % (0-3) Neutrophils # (Auto) 6.0 x10^3/uL (1.8-7.7) Lymphocytes # (Auto) 1.5 x10^3/uL (1.0-4.8) Monocytes # (Auto) 0.6 x10^3/uL (0.0-1.1) Eosinophils # (Auto) 0.1 x10^3/uL (0.0-0.7) Basophils # (Auto) 0.0 x10^3/uL (0.0-0.2) Sodium Level 114 mmol/L (136-145) 120 mmol/L (136-145) Potassium Level 5.1 mmol/L (3.5-5.1) 4.9 mmol/L (3.5-5.1) Chloride Level 79 mmol/L (98-107) 88 mmol/L (98-107) Carbon Dioxide Level 25 mmol/L (21-32) 27 mmol/L (21-32) Anion Gap 10 (6-14) 5 (6-14) Blood Urea Nitrogen 14 mg/dL (8-26) 11 mg/dL (8-26) Creatinine 1.2 mg/dL (0.7-1.3) 1.2 mg/dL (0.7-1.3) Estimated GFR (Cockcroft-Gault) 59.9 59.9 BUN/Creatinine Ratio 12 (6-20) Glucose Level 102 mg/dL (70-99) 94 mg/dL (70-99) Calcium Level 9.0 mg/dL (8.5-10.1) 8.5 mg/dL (8.5-10.1) Total Bilirubin 1.0 mg/dL (0.2-1.0) Aspartate Amino Transf (AST/SGOT) 94 U/L (15-37) Alanine Aminotransferase (ALT/SGPT) 36 U/L (16-63) Alkaline Phosphatase 47 U/L (46-116) Troponin I Quantitative 0.037 ng/mL (0.000-0.055) QN-Tbi-Z-Type Natriuretic Peptide 135 pg/mL (0-124) Total Protein 8.2 g/dL (6.4-8.2) Albumin 4.1 g/dL (3.4-5.0) Albumin/Globulin Ratio 1.0 (1.0-1.7) Lipase 162 U/L (73-393) Glucose (Fingerstick) 89 mg/dL (70-99) Test 01/23/19 08:14 Glucose (Fingerstick) 82 mg/dL (70-99) Laboratory Tests Test 01/22/19 16:58 01/22/19 17:20 01/22/19 19:40 01/23/19 02:10 Urine Collection Type Unknown Urine Color Yellow Urine Clarity Clear Urine pH 6.5 Urine Specific [place] 1.015 Urine Protein Negative mg/dL (NEG-TRACE) Urine Glucose (UA) Negative mg/dL (NEG) Urine Ketones (Stick) 15 mg/dL (NEG) Urine Blood Negative (NEG) Urine Nitrite Negative (NEG) Urine Bilirubin Negative (NEG) Urine Urobilinogen Dipstick 1.0 mg/dL (0.2 mg/dL) Urine Leukocyte Esterase Trace (NEG) Urine RBC 0 /HPF (0-2) Urine WBC Rare /HPF (0-4) Urine Bacteria 0 /HPF (0-FEW) White Blood Count 8.1 x10^3/uL (4.0-11.0) Red Blood Count 4.75 x10^6/uL (4.30-5.70) Hemoglobin 13.7 g/dL (13.0-17.5) Hematocrit 39.5 % (39.0-53.0) Mean Corpuscular Volume 83 fL (79-100) Mean Corpuscular Hemoglobin 29 pg (25-35) Mean Corpuscular Hemoglobin Concent 35 g/dL (31-37) Red Cell Distribution Width 15.1 % (11.5-14.5) Platelet Count 233 x10^3/uL (140-400) Neutrophils (%) (Auto) 73 % (31-73) Lymphocytes (%) (Auto) 18 % (24-48) Monocytes (%) (Auto) 7 % (0-9) Eosinophils (%) (Auto) 1 % (0-3) Basophils (%) (Auto) 1 % (0-3) Neutrophils # (Auto) 6.0 x10^3/uL (1.8-7.7) Lymphocytes # (Auto) 1.5 x10^3/uL (1.0-4.8) Monocytes # (Auto) 0.6 x10^3/uL (0.0-1.1) Eosinophils # (Auto) 0.1 x10^3/uL (0.0-0.7) Basophils # (Auto) 0.0 x10^3/uL (0.0-0.2) Sodium Level 114 mmol/L (136-145) 120 mmol/L (136-145) Potassium Level 5.1 mmol/L (3.5-5.1) 4.9 mmol/L (3.5-5.1) Chloride Level 79 mmol/L (98-107) 88 mmol/L (98-107) Carbon Dioxide Level 25 mmol/L (21-32) 27 mmol/L (21-32) Anion Gap 10 (6-14) 5 (6-14) Blood Urea Nitrogen 14 mg/dL (8-26) 11 mg/dL (8-26) Creatinine 1.2 mg/dL (0.7-1.3) 1.2 mg/dL (0.7-1.3) Estimated GFR (Cockcroft-Gault) 59.9 59.9 BUN/Creatinine Ratio 12 (6-20) Glucose Level 102 mg/dL (70-99) 94 mg/dL (70-99) Calcium Level 9.0 mg/dL (8.5-10.1) 8.5 mg/dL (8.5-10.1) Total Bilirubin 1.0 mg/dL (0.2-1.0) Aspartate Amino Transf (AST/SGOT) 94 U/L (15-37) Alanine Aminotransferase (ALT/SGPT) 36 U/L (16-63) Alkaline Phosphatase 47 U/L (46-116) Troponin I Quantitative 0.037 ng/mL (0.000-0.055) JK-Jye-I-Type Natriuretic Peptide 135 pg/mL (0-124) Total Protein 8.2 g/dL (6.4-8.2) Albumin 4.1 g/dL (3.4-5.0) Albumin/Globulin Ratio 1.0 (1.0-1.7) Lipase 162 U/L (73-393) Glucose (Fingerstick) 89 mg/dL (70-99) Test 01/23/19 08:14 Glucose (Fingerstick) 82 mg/dL (70-99) Review All relevant outside records, renal labs, imaging studies, telemetry/EKG's were reviewed. Images Images 1. Cholelithiasis without imaging evidence of acute cholecystitis. 2. No bowel obstruction. 3. No nephrolithiasis or hydronephrosis. 4. Left lateral urinary bladder diverticulum. 5. Right lower lobe pleural-based nodule. CT chest in 3-6 months is recommended. TAINA SCOTT MD Jan 23, 2019 12:12
[2019-01-23 12:36] LABS: CALCIUM 8.5 mg/dL (8.5-10.1); CREATININE 1.1 mg/dL (0.7-1.3); GFR 66.2; POTASSIUM 3.9 mmol/L (3.5-5.1)
[2019-01-23] MEDS: LEVOTHYROXINE 150 MCG TABLET PO SCH (14:32)
[2019-01-23 18:11] LABS: CREATININE 1.2 mg/dL (0.7-1.3); GFR 59.9; POTASSIUM 4.8 mmol/L (3.5-5.1)
[2019-01-24] VITALS (7 sets, daily range): BP systolic 113–131; BP diastolic 62–78
[2019-01-24 03:50] LABS: BASO % 0 % (0-3); EOS # 0.2 x10^3/uL (0.0-0.7); EOS % 3 % (0-3); HEMATOCRIT 38.5 % (39.0-53.0); HEMOGLOBIN 13.1 g/dL (13.0-17.5); LYMPH # 1.2 x10^3/uL (1.0-4.8); LYMPH % 21 % (24-48); MEAN CORPUSCULAR HEMOGLOBIN 29 pg (25-35); MEAN CORPUSCULAR HGB CONC 34 g/dL (31-37); MEAN CORPUSCULAR VOLUME 84 fL (79-100); MONO # 0.5 x10^3/uL (0.0-1.1); MONO % 9 % (0-9); NEUT # 3.8 x10^3/uL (1.8-7.7); NEUT % 67 % (31-73); PLATELET COUNT 223 x10^3/uL (140-400); RED BLOOD COUNT 4.57 x10^6/uL (4.30-5.70); RED CELL DISTRIBUTION WIDTH 15.9 % (11.5-14.5); WHITE BLOOD COUNT 5.7 x10^3/uL (4.0-11.0)
[2019-01-24 04:17] LABS: ALBUMIN 3.6 g/dL (3.4-5.0); ALBUMIN/GLOBULIN RATIO 0.9 (1.0-1.7); CALCIUM 8.8 mg/dL (8.5-10.1); CREATININE 1.1 mg/dL (0.7-1.3); GFR 66.2; POTASSIUM 3.8 mmol/L (3.5-5.1); TOTAL BILIRUBIN 0.9 mg/dL (0.2-1.0); TOTAL PROTEIN 7.4 g/dL (6.4-8.2)
[2019-01-24] MEDS: IV NORMAL SALINE 1000ML BAG 1,000 ML IV SCH ×2 (05:25→18:45)
[2019-01-24] MEDS: LEVOTHYROXINE 150 MCG TABLET PO SCH (05:53)
--- NOTE | 2019-01-24 06:11 | EKG ---
[facility] [address] [place] [address] Test Date: 2019-01-22 Test Time: 17:20:48 Pat Name: JACOBY MARTINEZ Department: Room: Gender: M Clothing Man: : 1950 Requested By: COLETTE DENISE Order Number: [id number] Reading MD: Measurements Intervals [place] Rate: 63 P: 33 NC: 182 QRS: 17 QRSD: 80 T: 52 QT: 390 QTc: 406 Interpretive Statements SINUS RHYTHM QRS(T) CONTOUR ABNORMALITY CANNOT RULE OUT ANTEROSEPTAL MYOCARDIAL DAMAGE BORDERLINE ECG No previous ECG available for comparison
--- NOTE | 2019-01-24 09:53 | PDOC ---
PROGRESS NOTES History of Present Illness History of Present Illness VTE Prophylaxis Ordered VTE Prophylaxis Devices: Yes VTE Pharmacological Prophylaxi: No Assessment/Plan Assessment/Plan nausea and vomiting and acute abd pain, cholelithiasis without imaging evidence of acute cholecystitis. No bowel obstruction. critical hyponatremia, hypovol, plan GI CONSULT gentle IV fluid, watch labs with caution, renal consulted w/u other endo, admitted to ICU/// NOW MED SURG 37 min, pt exam, chart review, > 50% of time spent with exam, chart review, pt care coordination SIGNIFICANT language barrier Vitals Vitals Vital Signs Date Time Temp Pulse Resp B/P (MAP) Pulse Ox O2 Delivery O2 Flow Rate FiO2 01/24/19 08:11 Room Air 01/24/19 04:20 97.5 59 20 125/69 (87) 99 97.5 Physical Exam General: Alert, Oriented X3, Cooperative, No acute distress Heart: Regular rate, Normal S1, Normal S2 Lungs: Clear Abdomen: Normal bowel sounds, Soft Extremities: No clubbing, No cyanosis, No edema, Normal pulses Skin: No rashes, No breakdown Labs LABS CT HEAD WO CONTRAST History: Hyponatremia, right ear and head pain Comparison: None. Technique: Noncontrast CT imaging was performed of the head. Exposure: One or more of the following individualized dose reduction techniques were utilized for this examination: 1. Automated exposure control 2. Adjustment of the mA and/or kV according to patient size 3. Use of iterative reconstruction technique. Findings: No acute extra-axial or parenchymal hemorrhage is identified. There is no significant intra-axial mass effect, midline shift, or extra-axial fluid collection. The gilliland-white differentiation of the major vascular territories is preserved. The ventricles, sulci, and cisterns are within normal limits in size and configuration. Mastoid air cells are overall aerated. There is atherosclerotic calcification of the carotid siphons bilaterally. There is probable mucosal thickening or mucous retention cysts of the right maxillary sinus. There is mild bilateral ethmoid air cell mucosal thickening. No acute calvarial abnormality is identified. Impression: 1. No acute intracranial abnormality is identified. 2. There is right maxillary sinus mucosal thickening or mucous retention cysts. Electronically signed by: Donovan Orellana MD (01/22/2019 7:32 PM) [facility] STATUS: REG ER ORD. PHYSICIAN: HOWIE,COLETTE [employer] REASON: abd pain, vomiting PROCEDURE: CT ABD PELV W/ IV CONTRST ONLY PQRS Compliance statement: One or more of the following individualized dose reduction techniques were utilized for this examination: 1. Automated exposure control. 2. Adjustment of the mA and/or kV according to patient size. 3. Use of iterative reconstruction technique. Indication:Abdominal pain. Vomiting. TECHNIQUE: CT abdomen and pelvis with IV contrast with multiplanar reformats. COMPARISON: None FINDINGS: Heart is normal in size. No pericardial or pleural effusion. Right lower lobe pleural-based nodule measuring 6 mm. Liver, spleen, pancreas, adrenals within normal limits. Gallstones noted. No pericholecystic fluid or inflammatory changes. Multiple bilateral low attenuating lesions in the kidneys most likely simple cysts, the largest on the right side measuring 3.6 cm and on the left side measuring 2 cm. No nephrolithiasis or hydronephrosis. No enlarged retroperitoneal or pelvic adenopathy. No free pelvic fluid or ascites. Small bilateral fat-containing hernia. The prostate and seminal vesicles show no large mass. Left lateral urinary bladder diverticulum measuring 3.5 x 1.5 cm. Urinary bladder demonstrates no radiopaque stone. No bowel obstruction. Appendix is not visualized. No right lower quadrant inflammatory changes. Small sliding hiatal hernia. No pneumoperitoneum. No suspicious bony lesion. IMPRESSION: 1. Cholelithiasis without imaging evidence of acute cholecystitis. 2. No bowel obstruction. 3. No nephrolithiasis or hydronephrosis. 4. Left lateral urinary bladder diverticulum. 5. Right lower lobe pleural-based nodule. CT chest in 3-6 months is recommended. Electronically signed by: Chalo Antoine DO (01/22/2019 6:23 PM) [facility] Laboratory Tests Test 01/23/19 12:01 01/23/19 12:15 01/23/19 16:34 01/23/19 17:47 Glucose (Fingerstick) 92 mg/dL (70-99) 90 mg/dL (70-99) Sodium Level 123 mmol/L (136-145) 122 mmol/L (136-145) Potassium Level 3.9 mmol/L (3.5-5.1) 4.8 mmol/L (3.5-5.1) Chloride Level 90 mmol/L (98-107) 88 mmol/L (98-107) Carbon Dioxide Level 24 mmol/L (21-32) 26 mmol/L (21-32) Anion Gap 9 (6-14) 8 (6-14) Blood Urea Nitrogen 10 mg/dL (8-26) 9 mg/dL (8-26) Creatinine 1.1 mg/dL (0.7-1.3) 1.2 mg/dL (0.7-1.3) Estimated GFR (Cockcroft-Gault) 66.2 59.9 Glucose Level 91 mg/dL (70-99) 155 mg/dL (70-99) Calcium Level 8.5 mg/dL (8.5-10.1) 9.0 mg/dL (8.5-10.1) Thyroid Stimulating Hormone (TSH) 58.056 uIU/mL (0.358-3.74) Test 01/23/19 20:41 01/24/19 03:40 01/24/19 08:15 Glucose (Fingerstick) 89 mg/dL (70-99) 106 mg/dL (70-99) White Blood Count 5.7 x10^3/uL (4.0-11.0) Red Blood Count 4.57 x10^6/uL (4.30-5.70) Hemoglobin 13.1 g/dL (13.0-17.5) Hematocrit 38.5 % (39.0-53.0) Mean Corpuscular Volume 84 fL (79-100) Mean Corpuscular Hemoglobin 29 pg (25-35) Mean Corpuscular Hemoglobin Concent 34 g/dL (31-37) Red Cell Distribution Width 15.9 % (11.5-14.5) Platelet Count 223 x10^3/uL (140-400) Neutrophils (%) (Auto) 67 % (31-73) Lymphocytes (%) (Auto) 21 % (24-48) Monocytes (%) (Auto) 9 % (0-9) Eosinophils (%) (Auto) 3 % (0-3) Basophils (%) (Auto) 0 % (0-3) Neutrophils # (Auto) 3.8 x10^3/uL (1.8-7.7) Lymphocytes # (Auto) 1.2 x10^3/uL (1.0-4.8) Monocytes # (Auto) 0.5 x10^3/uL (0.0-1.1) Eosinophils # (Auto) 0.2 x10^3/uL (0.0-0.7) Basophils # (Auto) 0.0 x10^3/uL (0.0-0.2) Sodium Level 126 mmol/L (136-145) Potassium Level 3.8 mmol/L (3.5-5.1) Chloride Level 92 mmol/L (98-107) Carbon Dioxide Level 23 mmol/L (21-32) Anion Gap 11 (6-14) Blood Urea Nitrogen 9 mg/dL (8-26) Creatinine 1.1 mg/dL (0.7-1.3) Estimated GFR (Cockcroft-Gault) 66.2 BUN/Creatinine Ratio 8 (6-20) Glucose Level 97 mg/dL (70-99) Calcium Level 8.8 mg/dL (8.5-10.1) Total Bilirubin 0.9 mg/dL (0.2-1.0) Aspartate Amino Transf (AST/SGOT) 55 U/L (15-37) Alanine Aminotransferase (ALT/SGPT) 32 U/L (16-63) Alkaline Phosphatase 44 U/L (46-116) Total Protein 7.4 g/dL (6.4-8.2) Albumin 3.6 g/dL (3.4-5.0) Albumin/Globulin Ratio 0.9 (1.0-1.7) Assessment and Plan Assessmemt and Plan Problems Medical Problems: (1) Chest pain Status: Acute (2) Cholelithiasis Status: Chronic (3) Diabetes mellitus Status: Chronic (4) Hyponatremia Status: Acute (5) Hypothyroidism Status: Chronic Comment Review of Relevant I have reviewed the following items heather (where applicable) has been applied. Labs Laboratory Tests Test 01/22/19 16:58 01/22/19 17:20 01/22/19 19:40 01/23/19 02:10 Urine Collection Type Unknown Urine Color Yellow Urine Clarity Clear Urine pH 6.5 Urine Specific [place] 1.015 Urine Protein Negative mg/dL (NEG-TRACE) Urine Glucose (UA) Negative mg/dL (NEG) Urine Ketones (Stick) 15 mg/dL (NEG) Urine Blood Negative (NEG) Urine Nitrite Negative (NEG) Urine Bilirubin Negative (NEG) Urine Urobilinogen Dipstick 1.0 mg/dL (0.2 mg/dL) Urine Leukocyte Esterase Trace (NEG) Urine RBC 0 /HPF (0-2) Urine WBC Rare /HPF (0-4) Urine Bacteria 0 /HPF (0-FEW) White Blood Count 8.1 x10^3/uL (4.0-11.0) Red Blood Count 4.75 x10^6/uL (4.30-5.70) Hemoglobin 13.7 g/dL (13.0-17.5) Hematocrit 39.5 % (39.0-53.0) Mean Corpuscular Volume 83 fL (79-100) Mean Corpuscular Hemoglobin 29 pg (25-35) Mean Corpuscular Hemoglobin Concent 35 g/dL (31-37) Red Cell Distribution Width 15.1 % (11.5-14.5) Platelet Count 233 x10^3/uL (140-400) Neutrophils (%) (Auto) 73 % (31-73) Lymphocytes (%) (Auto) 18 % (24-48) Monocytes (%) (Auto) 7 % (0-9) Eosinophils (%) (Auto) 1 % (0-3) Basophils (%) (Auto) 1 % (0-3) Neutrophils # (Auto) 6.0 x10^3/uL (1.8-7.7) Lymphocytes # (Auto) 1.5 x10^3/uL (1.0-4.8) Monocytes # (Auto) 0.6 x10^3/uL (0.0-1.1) Eosinophils # (Auto) 0.1 x10^3/uL (0.0-0.7) Basophils # (Auto) 0.0 x10^3/uL (0.0-0.2) Sodium Level 114 mmol/L (136-145) 120 mmol/L (136-145) Potassium Level 5.1 mmol/L (3.5-5.1) 4.9 mmol/L (3.5-5.1) Chloride Level 79 mmol/L (98-107) 88 mmol/L (98-107) Carbon Dioxide Level 25 mmol/L (21-32) 27 mmol/L (21-32) Anion Gap 10 (6-14) 5 (6-14) Blood Urea Nitrogen 14 mg/dL (8-26) 11 mg/dL (8-26) Creatinine 1.2 mg/dL (0.7-1.3) 1.2 mg/dL (0.7-1.3) Estimated GFR (Cockcroft-Gault) 59.9 59.9 BUN/Creatinine Ratio 12 (6-20) Glucose Level 102 mg/dL (70-99) 94 mg/dL (70-99) Calcium Level 9.0 mg/dL (8.5-10.1) 8.5 mg/dL (8.5-10.1) Total Bilirubin 1.0 mg/dL (0.2-1.0) Aspartate Amino Transf (AST/SGOT) 94 U/L (15-37) Alanine Aminotransferase (ALT/SGPT) 36 U/L (16-63) Alkaline Phosphatase 47 U/L (46-116) Troponin I Quantitative 0.037 ng/mL (0.000-0.055) UW-Ggx-F-Type Natriuretic Peptide 135 pg/mL (0-124) Total Protein 8.2 g/dL (6.4-8.2) Albumin 4.1 g/dL (3.4-5.0) Albumin/Globulin Ratio 1.0 (1.0-1.7) Lipase 162 U/L (73-393) Glucose (Fingerstick) 89 mg/dL (70-99) Test 01/23/19 08:14 01/23/19 12:01 01/23/19 12:15 01/23/19 16:34 Glucose (Fingerstick) 82 mg/dL (70-99) 92 mg/dL (70-99) 90 mg/dL (70-99) Sodium Level 123 mmol/L (136-145) Potassium Level 3.9 mmol/L (3.5-5.1) Chloride Level 90 mmol/L (98-107) Carbon Dioxide Level 24 mmol/L (21-32) Anion Gap 9 (6-14) Blood Urea Nitrogen 10 mg/dL (8-26) Creatinine 1.1 mg/dL (0.7-1.3) Estimated GFR (Cockcroft-Gault) 66.2 Glucose Level 91 mg/dL (70-99) Calcium Level 8.5 mg/dL (8.5-10.1) Thyroid Stimulating Hormone (TSH) 58.056 uIU/mL (0.358-3.74) Test 01/23/19 17:47 01/23/19 20:41 01/24/19 03:40 01/24/19 08:15 Sodium Level 122 mmol/L (136-145) 126 mmol/L (136-145) Potassium Level 4.8 mmol/L (3.5-5.1) 3.8 mmol/L (3.5-5.1) Chloride Level 88 mmol/L (98-107) 92 mmol/L (98-107) Carbon Dioxide Level 26 mmol/L (21-32) 23 mmol/L (21-32) Anion Gap 8 (6-14) 11 (6-14) Blood Urea Nitrogen 9 mg/dL (8-26) 9 mg/dL (8-26) Creatinine 1.2 mg/dL (0.7-1.3) 1.1 mg/dL (0.7-1.3) Estimated GFR (Cockcroft-Gault) 59.9 66.2 Glucose Level 155 mg/dL (70-99) 97 mg/dL (70-99) Calcium Level 9.0 mg/dL (8.5-10.1) 8.8 mg/dL (8.5-10.1) Glucose (Fingerstick) 89 mg/dL (70-99) 106 mg/dL (70-99) White Blood Count 5.7 x10^3/uL (4.0-11.0) Red Blood Count 4.57 x10^6/uL (4.30-5.70) Hemoglobin 13.1 g/dL (13.0-17.5) Hematocrit 38.5 % (39.0-53.0) Mean Corpuscular Volume 84 fL (79-100) Mean Corpuscular Hemoglobin 29 pg (25-35) Mean Corpuscular Hemoglobin Concent 34 g/dL (31-37) Red Cell Distribution Width 15.9 % (11.5-14.5) Platelet Count 223 x10^3/uL (140-400) Neutrophils (%) (Auto) 67 % (31-73) Lymphocytes (%) (Auto) 21 % (24-48) Monocytes (%) (Auto) 9 % (0-9) Eosinophils (%) (Auto) 3 % (0-3) Basophils (%) (Auto) 0 % (0-3) Neutrophils # (Auto) 3.8 x10^3/uL (1.8-7.7) Lymphocytes # (Auto) 1.2 x10^3/uL (1.0-4.8) Monocytes # (Auto) 0.5 x10^3/uL (0.0-1.1) Eosinophils # (Auto) 0.2 x10^3/uL (0.0-0.7) Basophils # (Auto) 0.0 x10^3/uL (0.0-0.2) BUN/Creatinine Ratio 8 (6-20) Total Bilirubin 0.9 mg/dL (0.2-1.0) Aspartate Amino Transf (AST/SGOT) 55 U/L (15-37) Alanine Aminotransferase (ALT/SGPT) 32 U/L (16-63) Alkaline Phosphatase 44 U/L (46-116) Total Protein 7.4 g/dL (6.4-8.2) Albumin 3.6 g/dL (3.4-5.0) Albumin/Globulin Ratio 0.9 (1.0-1.7) Laboratory Tests Test 01/23/19 12:01 01/23/19 12:15 01/23/19 16:34 01/23/19 17:47 Glucose (Fingerstick) 92 mg/dL (70-99) 90 mg/dL (70-99) Sodium Level 123 mmol/L (136-145) 122 mmol/L (136-145) Potassium Level 3.9 mmol/L (3.5-5.1) 4.8 mmol/L (3.5-5.1) Chloride Level 90 mmol/L (98-107) 88 mmol/L (98-107) Carbon Dioxide Level 24 mmol/L (21-32) 26 mmol/L (21-32) Anion Gap 9 (6-14) 8 (6-14) Blood Urea Nitrogen 10 mg/dL (8-26) 9 mg/dL (8-26) Creatinine 1.1 mg/dL (0.7-1.3) 1.2 mg/dL (0.7-1.3) Estimated GFR (Cockcroft-Gault) 66.2 59.9 Glucose Level 91 mg/dL (70-99) 155 mg/dL (70-99) Calcium Level 8.5 mg/dL (8.5-10.1) 9.0 mg/dL (8.5-10.1) Thyroid Stimulating Hormone (TSH) 58.056 uIU/mL (0.358-3.74) Test 01/23/19 20:41 01/24/19 03:40 01/24/19 08:15 Glucose (Fingerstick) 89 mg/dL (70-99) 106 mg/dL (70-99) White Blood Count 5.7 x10^3/uL (4.0-11.0) Red Blood Count 4.57 x10^6/uL (4.30-5.70) Hemoglobin 13.1 g/dL (13.0-17.5) Hematocrit 38.5 % (39.0-53.0) Mean Corpuscular Volume 84 fL (79-100) Mean Corpuscular Hemoglobin 29 pg (25-35) Mean Corpuscular Hemoglobin Concent 34 g/dL (31-37) Red Cell Distribution Width 15.9 % (11.5-14.5) Platelet Count 223 x10^3/uL (140-400) Neutrophils (%) (Auto) 67 % (31-73) Lymphocytes (%) (Auto) 21 % (24-48) Monocytes (%) (Auto) 9 % (0-9) Eosinophils (%) (Auto) 3 % (0-3) Basophils (%) (Auto) 0 % (0-3) Neutrophils # (Auto) 3.8 x10^3/uL (1.8-7.7) Lymphocytes # (Auto) 1.2 x10^3/uL (1.0-4.8) Monocytes # (Auto) 0.5 x10^3/uL (0.0-1.1) Eosinophils # (Auto) 0.2 x10^3/uL (0.0-0.7) Basophils # (Auto) 0.0 x10^3/uL (0.0-0.2) Sodium Level 126 mmol/L (136-145) Potassium Level 3.8 mmol/L (3.5-5.1) Chloride Level 92 mmol/L (98-107) Carbon Dioxide Level 23 mmol/L (21-32) Anion Gap 11 (6-14) Blood Urea Nitrogen 9 mg/dL (8-26) Creatinine 1.1 mg/dL (0.7-1.3) Estimated GFR (Cockcroft-Gault) 66.2 BUN/Creatinine Ratio 8 (6-20) Glucose Level 97 mg/dL (70-99) Calcium Level 8.8 mg/dL (8.5-10.1) Total Bilirubin 0.9 mg/dL (0.2-1.0) Aspartate Amino Transf (AST/SGOT) 55 U/L (15-37) Alanine Aminotransferase (ALT/SGPT) 32 U/L (16-63) Alkaline Phosphatase 44 U/L (46-116) Total Protein 7.4 g/dL (6.4-8.2) Albumin 3.6 g/dL (3.4-5.0) Albumin/Globulin Ratio 0.9 (1.0-1.7) Medications Current Medications Fentanyl Citrate (Fentanyl 2ml Vial) 25 mcg PRN Q15MIN PRN IV PAIN GREATER THAN 3/10 Last administered on 01/22/19at 18:08; Start 01/22/19 at 17:15; Stop 01/23/19 at 17:14; Status DC Sodium Chloride 1,000 ml @ 1,000 mls/hr Q1H IV ; Start 01/22/19 at 17:10; Stop 01/22/19 at 18:09; Status DC Sodium Chloride (Normal Saline Flush) 10 ml QSHIFT PRN IV AFTER MEDS AND BLOOD DRAWS; Start 01/22/19 at 17:15 Ondansetron HCl (Zofran) 4 mg 1X ONCE IV Last administered on 01/22/19at 18:07; Start 01/22/19 at 17:15; Stop 01/22/19 at 17:27; Status DC Famotidine (Pepcid Vial) 20 mg 1X ONCE IVP Last administered on 01/22/19at 18:08; Start 01/22/19 at 17:15; Stop 01/22/19 at 17:27; Status DC Iohexol (Omnipaque 300 Mg/ml) 60 ml 1X ONCE IV Last administered on 01/22/19at 18:03; Start 01/22/19 at 18:00; Stop 01/22/19 at 18:01; Status DC Info (CONTRAST GIVEN -- Rx MONITORING) 1 each PRN DAILY PRN MC SEE COMMENTS; Start 01/22/19 at 18:00; Stop 01/24/19 at 17:59 Sodium Chloride 1,000 ml @ 150 mls/hr 1X ONCE IV Last administered on 01/22/19at 19:00; Start 01/22/19 at 19:00; Stop 01/23/19 at 02:44; Status DC Ondansetron HCl (Zofran) 4 mg PRN Q8HRS PRN IV NAUSEA/VOMITING; Start 01/22/19 at 19:00; Stop 01/22/19 at 19:32; Status DC Morphine Sulfate (Morphine Sulfate) 2 mg PRN Q2HR PRN IV PAIN; Start 01/22/19 at 19:00; Stop 01/23/19 at 18:59; Status DC Sodium Chloride 1,000 ml @ 150 mls/hr Q6H40M IV Last administered on 01/23/19at 01:54; Start 01/22/19 at 18:56; Stop 01/23/19 at 02:44; Status DC Ondansetron HCl (Zofran) 4 mg PRN Q6HRS PRN IV NAUSEA/VOMITING Last administered on 01/24/19at 03:16; Start 01/22/19 at 19:30 Enoxaparin Sodium (Lovenox 40mg Syringe) 40 mg DAILY ONCE SQ Last administered on 01/22/19at 21:20; Start 01/22/19 at 20:00; Stop 01/22/19 at 20:01; Status DC Enoxaparin Sodium (Lovenox 40mg Syringe) 40 mg STK-MED ONCE SQ ; Start 01/22/19 at 21:19; Stop 01/22/19 at 21:19; Status DC Sodium Chloride 1,000 ml @ 75 mls/hr [id number] IV ; Start 01/23/19 at 02:45 Polyethylene Glycol (miraLAX PACKET) 17 gm DAILY PO Last administered on 01/23/19at 08:54; Start 01/23/19 at 09:00 Levothyroxine Sodium (Synthroid) 150 mcg DAILY06 PO Last administered on 01/24/19at 05:54; Start 01/23/19 at 14:00 Active Scripts Active Reported Zoloft (Sertraline Hcl) 50 Mg Tablet 1 Tab PO DAILY Atorvastatin Calcium 20 Mg Tablet 1 Tab PO DAILY Lisinopril 2.5 Mg Tablet 1 Tab PO DAILY Cetirizine Hcl 10 Mg Tablet 1 Tab PO DAILY Zofran (Ondansetron Hcl) 8 Mg Tablet 1 Tab PO Q8HRS 10 Days Metformin Hcl 500 Mg Tablet 500 Mg PO BIDWMEALS Levothyroxine Sodium 125 Mcg Tablet 1 Tab PO DAILY PRN Vitals/I & O Vital Sign - Last 24 Hours 01/23/19 01/23/19 01/23/19 01/23/19 08:02 09:03 10:03 11:02 Temp 98.0 98.0 Pulse 56 60 59 59 Resp 15 20 15 14 B/P (MAP) 140/73 (95) 145/99 (114) 133/80 (97) 132/78 (96) Pulse Ox 98 100 98 98 O2 Delivery Room Air Room Air Room Air Room Air 01/23/19 01/23/19 01/23/19 01/23/19 12:03 12:05 13:04 14:00 Pulse 58 64 62 Resp 19 17 20 B/P (MAP) 119/65 (83) 142/77 (98) 110/58 (75) Pulse Ox 100 100 100 O2 Delivery Room Air Room Air Room Air Room Air 01/23/19 01/23/19 01/23/19 01/23/19 15:04 17:30 20:00 20:45 Temp 98.2 97.5 98.2 97.5 Pulse 61 62 54 Resp 13 18 18 B/P (MAP) 115/68 (84) 141/66 (91) 138/73 (94) Pulse Ox 99 98 98 O2 Delivery Room Air Room Air Room Air Room Air 01/24/19 01/24/19 01/24/19 00:00 04:20 08:11 Temp 97.5 97.5 97.5 97.5 Pulse 56 59 Resp 20 20 B/P (MAP) 120/66 (84) 125/69 (87) Pulse Ox 98 99 O2 Delivery Room Air Room Air Room Air Intake and Output 01/23/19 01/24/19 01/24/19 17:00 01:00 09:00 Intake Total 1140 ml Output Total 850 ml 300 ml 300 ml Balance 290 ml -300 ml -300 ml FRANKIE MATOS MD Jan 24, 2019 09:53
[2019-01-24] MEDS: POLYETHYLENE GLYCOL 3350 17 GM PACKET. PO SCH (10:08)
--- NOTE | 2019-01-24 12:12 | PDOC ---
Renal-Progress Notes Subjective Notes Notes NONE History of Present Illness Hx of present illness STABLE Vitals Vitals Vital Signs Date Time Temp Pulse Resp B/P (MAP) Pulse Ox O2 Delivery O2 Flow Rate FiO2 01/24/19 11:00 98.0 64 18 119/73 (88) 100 Room Air 98.0 Weight Weight [ ] I.O. Intake and Output Intake and Output 01/24/19 07:00 Intake Total 1140 ml Output Total 1830 ml Balance -690 ml Intake Oral 440 ml IV Total 700 ml Output Urine Total 1830 ml # Voids 2 # Bowel Movements 1 Labs Labs Laboratory Tests Test 01/23/19 12:15 01/23/19 16:34 01/23/19 17:47 01/23/19 20:41 Sodium Level 123 mmol/L (136-145) 122 mmol/L (136-145) Potassium Level 3.9 mmol/L (3.5-5.1) 4.8 mmol/L (3.5-5.1) Chloride Level 90 mmol/L (98-107) 88 mmol/L (98-107) Carbon Dioxide Level 24 mmol/L (21-32) 26 mmol/L (21-32) Anion Gap 9 (6-14) 8 (6-14) Blood Urea Nitrogen 10 mg/dL (8-26) 9 mg/dL (8-26) Creatinine 1.1 mg/dL (0.7-1.3) 1.2 mg/dL (0.7-1.3) Estimated GFR (Cockcroft-Gault) 66.2 59.9 Glucose Level 91 mg/dL (70-99) 155 mg/dL (70-99) Calcium Level 8.5 mg/dL (8.5-10.1) 9.0 mg/dL (8.5-10.1) Thyroid Stimulating Hormone (TSH) 58.056 uIU/mL (0.358-3.74) Glucose (Fingerstick) 90 mg/dL (70-99) 89 mg/dL (70-99) Test 01/24/19 03:40 01/24/19 08:15 01/24/19 11:43 White Blood Count 5.7 x10^3/uL (4.0-11.0) Red Blood Count 4.57 x10^6/uL (4.30-5.70) Hemoglobin 13.1 g/dL (13.0-17.5) Hematocrit 38.5 % (39.0-53.0) Mean Corpuscular Volume 84 fL (79-100) Mean Corpuscular Hemoglobin 29 pg (25-35) Mean Corpuscular Hemoglobin Concent 34 g/dL (31-37) Red Cell Distribution Width 15.9 % (11.5-14.5) Platelet Count 223 x10^3/uL (140-400) Neutrophils (%) (Auto) 67 % (31-73) Lymphocytes (%) (Auto) 21 % (24-48) Monocytes (%) (Auto) 9 % (0-9) Eosinophils (%) (Auto) 3 % (0-3) Basophils (%) (Auto) 0 % (0-3) Neutrophils # (Auto) 3.8 x10^3/uL (1.8-7.7) Lymphocytes # (Auto) 1.2 x10^3/uL (1.0-4.8) Monocytes # (Auto) 0.5 x10^3/uL (0.0-1.1) Eosinophils # (Auto) 0.2 x10^3/uL (0.0-0.7) Basophils # (Auto) 0.0 x10^3/uL (0.0-0.2) Sodium Level 126 mmol/L (136-145) Potassium Level 3.8 mmol/L (3.5-5.1) Chloride Level 92 mmol/L (98-107) Carbon Dioxide Level 23 mmol/L (21-32) Anion Gap 11 (6-14) Blood Urea Nitrogen 9 mg/dL (8-26) Creatinine 1.1 mg/dL (0.7-1.3) Estimated GFR (Cockcroft-Gault) 66.2 BUN/Creatinine Ratio 8 (6-20) Glucose Level 97 mg/dL (70-99) Calcium Level 8.8 mg/dL (8.5-10.1) Total Bilirubin 0.9 mg/dL (0.2-1.0) Aspartate Amino Transf (AST/SGOT) 55 U/L (15-37) Alanine Aminotransferase (ALT/SGPT) 32 U/L (16-63) Alkaline Phosphatase 44 U/L (46-116) Total Protein 7.4 g/dL (6.4-8.2) Albumin 3.6 g/dL (3.4-5.0) Albumin/Globulin Ratio 0.9 (1.0-1.7) Glucose (Fingerstick) 106 mg/dL (70-99) 125 mg/dL (70-99) Review of Systems Constitutional: yes: other (UNABLE TO OBTAIN) Physical Exam General Appearance: no apparent distress Skin: warm Respiratory: decreased breath sounds Heart: S1S2 Abdomen: soft Genitourinary: bladder flat Extremities: pulses present Neurology: alert Assessment Assessment IMP HYPONATREMIA-IMPROVED HYPOTHYROIDISM DM II PLAN LOW FLOW ISOTONIC SALINE THYROID REPLACEMENT ENDER GONZALEZ MD Jan 24, 2019 12:12
[2019-01-24] MEDS ORDERED: BISACODYL 10 MG SUPP.RECT. PR ONE (12:15)
[2019-01-24] MEDS ORDERED: MINERAL OIL 133 ML ENEMA. PR PRN (12:15)
--- NOTE | 2019-01-24 16:19 | PDOC2 ---
GI CONSULT Reason For Consult: Abd pain HPI: HPI: 68 y/o male - translation per son Rob - history challenging. "Hot" pain in epigastrium to chest - "like heartburn" started yesterday. Better now - just happens when he presses on it, might be worse with eating. Usually no issues w/ heartburn/reflux but did have a similar instance in 2014 - didn't see a doctor then. Also takes "an medication for his stomach." Describes either dysphagia or nausea - occurs frequently. No hematemesis, hematochezia, or melena. Typically no issues w/ diarrhea or constipation but hasn't stooled in several days. Took Miralax but refused suppository here. Might have lost weight. H/o ?surgery for "benign cyst" on neck last year - at that time had EGD in [place] - reportedly normal and then he was started on thyroid medication. No previous colonoscopy. Cholelithiasis on imaging. No liver, pancreas, or PUD history. No NSAIDs. Some sort of surgery in [place] years ago - "on his bowel because it was getting smaller." PMH: PMH: HTN, DM, hypothyroidism, HLD ?neck surgery (?thyroid biopsy), ?SBR (?appendectomy) Social History: Smoke: No ALCOHOL: none Drugs: None ROS: GEN: Denies fevers, chills, sweats HEENT: Denies blurred vision, sore throat CV: +chest pain RESP: Denies shortness of air, cough GI: Per HPI : Denies hematuria, dysuria ENDO: +weight loss NEURO: Denies confusion, dizziness MSK: Denies weakness, joint pain/swelling SKIN: Denies jaundice, pruritus Vitals: Vitals: Vital Signs Date Time Temp Pulse Resp B/P (MAP) Pulse Ox O2 Delivery O2 Flow Rate FiO2 01/24/19 11:00 98.0 64 18 119/73 (88) 100 Room Air 98.0 Labs: Labs: Laboratory Tests Test 01/23/19 16:34 01/23/19 17:47 01/23/19 20:41 01/24/19 03:40 Glucose (Fingerstick) 90 mg/dL (70-99) 89 mg/dL (70-99) Sodium Level 122 mmol/L (136-145) 126 mmol/L (136-145) Potassium Level 4.8 mmol/L (3.5-5.1) 3.8 mmol/L (3.5-5.1) Chloride Level 88 mmol/L (98-107) 92 mmol/L (98-107) Carbon Dioxide Level 26 mmol/L (21-32) 23 mmol/L (21-32) Anion Gap 8 (6-14) 11 (6-14) Blood Urea Nitrogen 9 mg/dL (8-26) 9 mg/dL (8-26) Creatinine 1.2 mg/dL (0.7-1.3) 1.1 mg/dL (0.7-1.3) Estimated GFR (Cockcroft-Gault) 59.9 66.2 Glucose Level 155 mg/dL (70-99) 97 mg/dL (70-99) Calcium Level 9.0 mg/dL (8.5-10.1) 8.8 mg/dL (8.5-10.1) White Blood Count 5.7 x10^3/uL (4.0-11.0) Red Blood Count 4.57 x10^6/uL (4.30-5.70) Hemoglobin 13.1 g/dL (13.0-17.5) Hematocrit 38.5 % (39.0-53.0) Mean Corpuscular Volume 84 fL (79-100) Mean Corpuscular Hemoglobin 29 pg (25-35) Mean Corpuscular Hemoglobin Concent 34 g/dL (31-37) Red Cell Distribution Width 15.9 % (11.5-14.5) Platelet Count 223 x10^3/uL (140-400) Neutrophils (%) (Auto) 67 % (31-73) Lymphocytes (%) (Auto) 21 % (24-48) Monocytes (%) (Auto) 9 % (0-9) Eosinophils (%) (Auto) 3 % (0-3) Basophils (%) (Auto) 0 % (0-3) Neutrophils # (Auto) 3.8 x10^3/uL (1.8-7.7) Lymphocytes # (Auto) 1.2 x10^3/uL (1.0-4.8) Monocytes # (Auto) 0.5 x10^3/uL (0.0-1.1) Eosinophils # (Auto) 0.2 x10^3/uL (0.0-0.7) Basophils # (Auto) 0.0 x10^3/uL (0.0-0.2) BUN/Creatinine Ratio 8 (6-20) Total Bilirubin 0.9 mg/dL (0.2-1.0) Aspartate Amino Transf (AST/SGOT) 55 U/L (15-37) Alanine Aminotransferase (ALT/SGPT) 32 U/L (16-63) Alkaline Phosphatase 44 U/L (46-116) Total Protein 7.4 g/dL (6.4-8.2) Albumin 3.6 g/dL (3.4-5.0) Albumin/Globulin Ratio 0.9 (1.0-1.7) Cortisol AM Sample 19.0 ug/dL (4.3-22.4) Test 01/24/19 08:15 01/24/19 11:43 Glucose (Fingerstick) 106 mg/dL (70-99) 125 mg/dL (70-99) Allergies: Coded Allergies: No Known Drug Allergies (Unverified , 01/22/19) Imaging: Imaging: CXR Impression: 1. There is likely minimal atelectasis left lung base. Pericardial cardiac silhouette is enlarged. CT A/P IMPRESSION: 1. Cholelithiasis without imaging evidence of acute cholecystitis. 2. No bowel obstruction. 3. No nephrolithiasis or hydronephrosis. 4. Left lateral urinary bladder diverticulum. 5. Right lower lobe pleural-based nodule. CT chest in 3-6 months is recommended. Head CT Impression: 1. No acute intracranial abnormality is identified. 2. There is right maxillary sinus mucosal thickening or mucous retention cysts. PE: GEN: NAD HEENT: Atraumatic, PERRL LUNGS: CTAB HEART: RRR ABD: NABS, S/ND/NT - faint scar RLQ EXTREMITY: No edema SKIN: No rashes, no jaundice NEURO/PSYCH: A & O �3 - doesn't speak Portuguese A/P: A/P: Heartburn - ?frequent nausea/dysphagia - EGD last year in [place] reportedly normal Cholelithiasis ?constipation CRC screen - none Hyponatremia, hypothyroidism -- Try PPI. ?advance diet Will review w/ Dr. Chavira. DAVIDA CUTLER Jan 24, 2019 16:19
[2019-01-25 03:14] VITALS: BP 124/71
[2019-01-25] MEDS: LEVOTHYROXINE 150 MCG TABLET PO SCH (06:05)
[2019-01-25] MEDS: PANTOPRAZOLE 40 MG TABLET.DR. PO SCH ×2 (06:05→08:48)
[2019-01-25 06:42] LABS: ALBUMIN 3.8 g/dL (3.4-5.0); CALCIUM 9.3 mg/dL (8.5-10.1); CREATININE 1.3 mg/dL (0.7-1.3); GFR 54.6; POTASSIUM 4.3 mmol/L (3.5-5.1); TOTAL BILIRUBIN 0.9 mg/dL (0.2-1.0); TOTAL PROTEIN 7.8 g/dL (6.4-8.2)
[2019-01-25 07:00] VITALS: BP 157/70
[2019-01-25] MEDS: IV NORMAL SALINE 1000ML BAG 1,000 ML IV SCH ×2 (08:05→14:53)
[2019-01-25] MEDS: POLYETHYLENE GLYCOL 3350 17 GM PACKET. PO SCH (08:48)
--- NOTE | 2019-01-25 09:10 | PDOC ---
PROGRESS NOTES History of Present Illness History of Present Illness VTE Prophylaxis Ordered VTE Prophylaxis Devices: Yes VTE Pharmacological Prophylaxi: No Assessment/Plan Assessment/Plan nausea and vomiting and acute abd pain, cholelithiasis without imaging evidence of acute cholecystitis. No bowel obstruction. critical hyponatremia, hypovol, ruq pain plan GI CONSULT gentle IV fluid, watch labs with caution, renal consulted abd sono 01/25 w/u other endo, admitted to ICU/// NOW MED SURG 29 min, pt exam, chart review, > 50% of time spent with exam, chart review, pt care coordination SIGNIFICANT language barrier Vitals Vitals Vital Signs Date Time Temp Pulse Resp B/P (MAP) Pulse Ox O2 Delivery O2 Flow Rate FiO2 01/25/19 07:00 97.6 78 18 157/70 (99) 99 Room Air 97.6 Physical Exam General: Alert, Oriented X3, Cooperative, No acute distress, mild distress Heart: Regular rate, Normal S1, Normal S2 Lungs: Clear Abdomen: Normal bowel sounds, Soft Extremities: No clubbing, No cyanosis, No edema, Normal pulses Skin: No rashes, No breakdown Labs LABS Laboratory Tests Test 01/24/19 11:43 01/24/19 14:45 01/24/19 17:02 01/24/19 20:45 Glucose (Fingerstick) 125 mg/dL (70-99) 125 mg/dL (70-99) 112 mg/dL (70-99) Cortisol PM Sample 11.0 ug/dL (3.1-16.7) Test 01/25/19 04:50 01/25/19 07:16 Sodium Level 126 mmol/L (136-145) Potassium Level 4.3 mmol/L (3.5-5.1) Chloride Level 92 mmol/L (98-107) Carbon Dioxide Level 26 mmol/L (21-32) Anion Gap 8 (6-14) Blood Urea Nitrogen 9 mg/dL (8-26) Creatinine 1.3 mg/dL (0.7-1.3) Estimated GFR (Cockcroft-Gault) 54.6 BUN/Creatinine Ratio 7 (6-20) Glucose Level 117 mg/dL (70-99) Calcium Level 9.3 mg/dL (8.5-10.1) Total Bilirubin 0.9 mg/dL (0.2-1.0) Aspartate Amino Transf (AST/SGOT) 43 U/L (15-37) Alanine Aminotransferase (ALT/SGPT) 35 U/L (16-63) Alkaline Phosphatase 42 U/L (46-116) Total Protein 7.8 g/dL (6.4-8.2) Albumin 3.8 g/dL (3.4-5.0) Albumin/Globulin Ratio 1.0 (1.0-1.7) Glucose (Fingerstick) 124 mg/dL (70-99) Assessment and Plan Assessmemt and Plan Problems Medical Problems: (1) Chest pain Status: Acute (2) Cholelithiasis Status: Chronic (3) Diabetes mellitus Status: Chronic (4) Hyponatremia Status: Acute (5) Hypothyroidism Status: Chronic Comment Review of Relevant I have reviewed the following items heather (where applicable) has been applied. Labs Laboratory Tests Test 01/23/19 12:01 01/23/19 12:15 01/23/19 16:34 01/23/19 17:47 Glucose (Fingerstick) 92 mg/dL (70-99) 90 mg/dL (70-99) Sodium Level 123 mmol/L (136-145) 122 mmol/L (136-145) Potassium Level 3.9 mmol/L (3.5-5.1) 4.8 mmol/L (3.5-5.1) Chloride Level 90 mmol/L (98-107) 88 mmol/L (98-107) Carbon Dioxide Level 24 mmol/L (21-32) 26 mmol/L (21-32) Anion Gap 9 (6-14) 8 (6-14) Blood Urea Nitrogen 10 mg/dL (8-26) 9 mg/dL (8-26) Creatinine 1.1 mg/dL (0.7-1.3) 1.2 mg/dL (0.7-1.3) Estimated GFR (Cockcroft-Gault) 66.2 59.9 Glucose Level 91 mg/dL (70-99) 155 mg/dL (70-99) Calcium Level 8.5 mg/dL (8.5-10.1) 9.0 mg/dL (8.5-10.1) Thyroid Stimulating Hormone (TSH) 58.056 uIU/mL (0.358-3.74) Test 01/23/19 20:41 01/24/19 03:40 01/24/19 08:15 01/24/19 11:43 Glucose (Fingerstick) 89 mg/dL (70-99) 106 mg/dL (70-99) 125 mg/dL (70-99) White Blood Count 5.7 x10^3/uL (4.0-11.0) Red Blood Count 4.57 x10^6/uL (4.30-5.70) Hemoglobin 13.1 g/dL (13.0-17.5) Hematocrit 38.5 % (39.0-53.0) Mean Corpuscular Volume 84 fL (79-100) Mean Corpuscular Hemoglobin 29 pg (25-35) Mean Corpuscular Hemoglobin Concent 34 g/dL (31-37) Red Cell Distribution Width 15.9 % (11.5-14.5) Platelet Count 223 x10^3/uL (140-400) Neutrophils (%) (Auto) 67 % (31-73) Lymphocytes (%) (Auto) 21 % (24-48) Monocytes (%) (Auto) 9 % (0-9) Eosinophils (%) (Auto) 3 % (0-3) Basophils (%) (Auto) 0 % (0-3) Neutrophils # (Auto) 3.8 x10^3/uL (1.8-7.7) Lymphocytes # (Auto) 1.2 x10^3/uL (1.0-4.8) Monocytes # (Auto) 0.5 x10^3/uL (0.0-1.1) Eosinophils # (Auto) 0.2 x10^3/uL (0.0-0.7) Basophils # (Auto) 0.0 x10^3/uL (0.0-0.2) Sodium Level 126 mmol/L (136-145) Potassium Level 3.8 mmol/L (3.5-5.1) Chloride Level 92 mmol/L (98-107) Carbon Dioxide Level 23 mmol/L (21-32) Anion Gap 11 (6-14) Blood Urea Nitrogen 9 mg/dL (8-26) Creatinine 1.1 mg/dL (0.7-1.3) Estimated GFR (Cockcroft-Gault) 66.2 BUN/Creatinine Ratio 8 (6-20) Glucose Level 97 mg/dL (70-99) Calcium Level 8.8 mg/dL (8.5-10.1) Total Bilirubin 0.9 mg/dL (0.2-1.0) Aspartate Amino Transf (AST/SGOT) 55 U/L (15-37) Alanine Aminotransferase (ALT/SGPT) 32 U/L (16-63) Alkaline Phosphatase 44 U/L (46-116) Total Protein 7.4 g/dL (6.4-8.2) Albumin 3.6 g/dL (3.4-5.0) Albumin/Globulin Ratio 0.9 (1.0-1.7) Cortisol AM Sample 19.0 ug/dL (4.3-22.4) Test 01/24/19 14:45 01/24/19 17:02 01/24/19 20:45 01/25/19 04:50 Cortisol PM Sample 11.0 ug/dL (3.1-16.7) Glucose (Fingerstick) 125 mg/dL (70-99) 112 mg/dL (70-99) Sodium Level 126 mmol/L (136-145) Potassium Level 4.3 mmol/L (3.5-5.1) Chloride Level 92 mmol/L (98-107) Carbon Dioxide Level 26 mmol/L (21-32) Anion Gap 8 (6-14) Blood Urea Nitrogen 9 mg/dL (8-26) Creatinine 1.3 mg/dL (0.7-1.3) Estimated GFR (Cockcroft-Gault) 54.6 BUN/Creatinine Ratio 7 (6-20) Glucose Level 117 mg/dL (70-99) Calcium Level 9.3 mg/dL (8.5-10.1) Total Bilirubin 0.9 mg/dL (0.2-1.0) Aspartate Amino Transf (AST/SGOT) 43 U/L (15-37) Alanine Aminotransferase (ALT/SGPT) 35 U/L (16-63) Alkaline Phosphatase 42 U/L (46-116) Total Protein 7.8 g/dL (6.4-8.2) Albumin 3.8 g/dL (3.4-5.0) Albumin/Globulin Ratio 1.0 (1.0-1.7) Test 01/25/19 07:16 Glucose (Fingerstick) 124 mg/dL (70-99) Laboratory Tests Test 01/24/19 11:43 01/24/19 14:45 01/24/19 17:02 01/24/19 20:45 Glucose (Fingerstick) 125 mg/dL (70-99) 125 mg/dL (70-99) 112 mg/dL (70-99) Cortisol PM Sample 11.0 ug/dL (3.1-16.7) Test 01/25/19 04:50 01/25/19 07:16 Sodium Level 126 mmol/L (136-145) Potassium Level 4.3 mmol/L (3.5-5.1) Chloride Level 92 mmol/L (98-107) Carbon Dioxide Level 26 mmol/L (21-32) Anion Gap 8 (6-14) Blood Urea Nitrogen 9 mg/dL (8-26) Creatinine 1.3 mg/dL (0.7-1.3) Estimated GFR (Cockcroft-Gault) 54.6 BUN/Creatinine Ratio 7 (6-20) Glucose Level 117 mg/dL (70-99) Calcium Level 9.3 mg/dL (8.5-10.1) Total Bilirubin 0.9 mg/dL (0.2-1.0) Aspartate Amino Transf (AST/SGOT) 43 U/L (15-37) Alanine Aminotransferase (ALT/SGPT) 35 U/L (16-63) Alkaline Phosphatase 42 U/L (46-116) Total Protein 7.8 g/dL (6.4-8.2) Albumin 3.8 g/dL (3.4-5.0) Albumin/Globulin Ratio 1.0 (1.0-1.7) Glucose (Fingerstick) 124 mg/dL (70-99) Medications Current Medications Fentanyl Citrate (Fentanyl 2ml Vial) 25 mcg PRN Q15MIN PRN IV PAIN GREATER THAN 3/10 Last administered on 01/22/19at 18:08; Start 01/22/19 at 17:15; Stop 01/23/19 at 17:14; Status DC Sodium Chloride 1,000 ml @ 1,000 mls/hr Q1H IV ; Start 01/22/19 at 17:10; Stop 01/22/19 at 18:09; Status DC Sodium Chloride (Normal Saline Flush) 10 ml QSHIFT PRN IV AFTER MEDS AND BLOOD DRAWS; Start 01/22/19 at 17:15 Ondansetron HCl (Zofran) 4 mg 1X ONCE IV Last administered on 01/22/19at 18:07; Start 01/22/19 at 17:15; Stop 01/22/19 at 17:27; Status DC Famotidine (Pepcid Vial) 20 mg 1X ONCE IVP Last administered on 01/22/19at 18:08; Start 01/22/19 at 17:15; Stop 01/22/19 at 17:27; Status DC Iohexol (Omnipaque 300 Mg/ml) 60 ml 1X ONCE IV Last administered on 01/22/19at 18:03; Start 01/22/19 at 18:00; Stop 01/22/19 at 18:01; Status DC Info (CONTRAST GIVEN -- Rx MONITORING) 1 each PRN DAILY PRN MC SEE COMMENTS; Start 01/22/19 at 18:00; Stop 01/24/19 at 17:59; Status DC Sodium Chloride 1,000 ml @ 150 mls/hr 1X ONCE IV Last administered on 01/22/19at 19:00; Start 01/22/19 at 19:00; Stop 01/23/19 at 02:44; Status DC Ondansetron HCl (Zofran) 4 mg PRN Q8HRS PRN IV NAUSEA/VOMITING; Start 01/22/19 at 19:00; Stop 01/22/19 at 19:32; Status DC Morphine Sulfate (Morphine Sulfate) 2 mg PRN Q2HR PRN IV PAIN; Start 01/22/19 at 19:00; Stop 01/23/19 at 18:59; Status DC Sodium Chloride 1,000 ml @ 150 mls/hr Q6H40M IV Last administered on 01/23/19at 01:54; Start 01/22/19 at 18:56; Stop 01/23/19 at 02:44; Status DC Ondansetron HCl (Zofran) 4 mg PRN Q6HRS PRN IV NAUSEA/VOMITING Last administered on 01/24/19at 03:16; Start 01/22/19 at 19:30 Enoxaparin Sodium (Lovenox 40mg Syringe) 40 mg DAILY ONCE SQ Last administered on 01/22/19at 21:20; Start 01/22/19 at 20:00; Stop 01/22/19 at 20:01; Status DC Enoxaparin Sodium (Lovenox 40mg Syringe) 40 mg STK-MED ONCE SQ ; Start 01/22/19 at 21:19; Stop 01/22/19 at 21:19; Status DC Sodium Chloride 1,000 ml @ 75 mls/hr [id number] IV ; Start 01/23/19 at 02:45 Polyethylene Glycol (miraLAX PACKET) 17 gm DAILY PO Last administered on 01/25/19at 08:48; Start 01/23/19 at 09:00 Levothyroxine Sodium (Synthroid) 150 mcg DAILY06 PO Last administered on 01/25/19at 06:05; Start 01/23/19 at 14:00 Bisacodyl (Dulcolax Supp) 10 mg 1X ONCE UT ; Start 01/24/19 at 12:15; Stop 01/24/19 at 12:16; Status DC Mineral Oil (Fleet Mineral Oil) 133 ml PRN 1X PRN UT IF NO RESULTS FROM BISACODYL; Start 01/24/19 at 12:15; Stop 01/24/19 at 23:00; Status DC Pantoprazole Sodium (Protonix) 40 mg DAILYAC PO Last administered on 01/25/19at 08:48; Start 01/25/19 at 07:30 Active Scripts Active Reported Zoloft (Sertraline Hcl) 50 Mg Tablet 1 Tab PO DAILY Atorvastatin Calcium 20 Mg Tablet 1 Tab PO DAILY Lisinopril 2.5 Mg Tablet 1 Tab PO DAILY Cetirizine Hcl 10 Mg Tablet 1 Tab PO DAILY Zofran (Ondansetron Hcl) 8 Mg Tablet 1 Tab PO Q8HRS 10 Days Metformin Hcl 500 Mg Tablet 500 Mg PO BIDWMEALS Levothyroxine Sodium 125 Mcg Tablet 1 Tab PO DAILY PRN Vitals/I & O Vital Sign - Last 24 Hours 01/24/19 01/24/19 01/24/19 01/24/19 08:11 11:00 15:00 19:06 Temp 98.0 97.6 97.3 98.0 97.6 97.3 Pulse 64 69 62 Resp 18 18 16 B/P (MAP) 119/73 (88) 131/78 (95) 124/75 (91) Pulse Ox 100 98 96 O2 Delivery Room Air Room Air Room Air Room Air 01/24/19 01/24/19 01/25/19 01/25/19 19:30 23:29 03:14 07:00 Temp 97.8 97.9 97.6 97.8 97.9 97.6 Pulse 64 57 78 Resp 18 16 18 B/P (MAP) 120/62 (81) 124/71 (88) 157/70 (99) Pulse Ox 99 99 99 O2 Delivery Room Air Room Air Room Air Room Air Intake and Output 01/24/19 01/25/19 01/25/19 16:59 00:59 08:59 Intake Total 600 ml 150 ml 100 ml Output Total 200 ml Balance 400 ml 150 ml 100 ml FRANKIE MATOS MD Jan 25, 2019 09:09
--- NOTE | 2019-01-25 09:19 | PDOC ---
Subjective: Subjective: Son Delroy oliveira Still has burning RUQ and epigastric pain. Tolerating clears. Objective: Vital Signs: Vital Signs Date Time Temp Pulse Resp B/P (MAP) Pulse Ox O2 Delivery O2 Flow Rate FiO2 01/25/19 07:00 97.6 78 18 157/70 (99) 99 Room Air 97.6 Labs: Laboratory Tests Test 01/24/19 11:43 01/24/19 14:45 01/24/19 17:02 01/24/19 20:45 Glucose (Fingerstick) 125 mg/dL 125 mg/dL 112 mg/dL Cortisol PM Sample 11.0 ug/dL Test 01/25/19 04:50 01/25/19 07:16 Sodium Level 126 mmol/L Potassium Level 4.3 mmol/L Chloride Level 92 mmol/L Carbon Dioxide Level 26 mmol/L Anion Gap 8 Blood Urea Nitrogen 9 mg/dL Creatinine 1.3 mg/dL Estimated GFR (Cockcroft-Gault) 54.6 BUN/Creatinine Ratio 7 Glucose Level 117 mg/dL Calcium Level 9.3 mg/dL Total Bilirubin 0.9 mg/dL Aspartate Amino Transf (AST/SGOT) 43 U/L Alanine Aminotransferase (ALT/SGPT) 35 U/L Alkaline Phosphatase 42 U/L Total Protein 7.8 g/dL Albumin 3.8 g/dL Albumin/Globulin Ratio 1.0 Glucose (Fingerstick) 124 mg/dL Imaging: US 01/25 pending PE: GEN: NAD - sitting on edge of bed - continuously pokes his abdomen LUNGS: CTAB HEART: RRR ABD: S/ND - does not seem tender NEURO/PSYCH: A & O �3 - doesn't speak [place] A/P: Burning upper abd pain - EGD last year in [place] reportedly normal Elevated AST - improving Cholelithiasis - on CT, US pending Hyponatremia, hypothyroidism - per renal/primary -- Await US. Continue PPI, Miralax. ?advance diet CARMEN-DAVIDA BLACK Jan 25, 2019 09:19
[2019-01-25 11:00] VITALS: BP 136/72
--- NOTE | 2019-01-25 13:25 | RAD ---
EXAM: Abdomen sonogram. HISTORY: Cholelithiasis. TECHNIQUE: Sonographic imaging of the abdomen was performed. COMPARISON: CT dated 01/22/2019. FINDINGS: The liver is normal in size. There is hepatic steatosis. No focal hepatic lesion is seen. There is cholelithiasis. No nonmobile lesion is seen within the gallbladder to suggest a polyp. The gallbladder wall is normal in thickness. There is no pericholecystic fluid. The right kidney is normal in size. There are small suspected cyst within the right kidney measuring 2.3 cm and 2.5 cm. There is no hydronephrosis. The inferior cava is patent. The pancreas is obscured due to bowel gas. IMPRESSION: 1. Cholelithiasis. There is no convincing superimposed cholecystitis. 2. Right renal cysts. 3. Suspected hepatic steatosis. Electronically signed by: Martine White MD (01/25/2019 1:22 PM) [id number]
--- NOTE | 2019-01-25 13:36 | PDOC ---
Renal-Progress Notes Subjective Notes Notes STABLE History of Present Illness Hx of present illness NO CHANGE Vitals Vitals Vital Signs Date Time Temp Pulse Resp B/P (MAP) Pulse Ox O2 Delivery O2 Flow Rate FiO2 01/25/19 11:00 97.8 70 18 136/72 (93) 100 Room Air 97.8 Weight Weight [ ] I.O. Intake and Output Intake and Output 01/25/19 07:00 Intake Total 850 ml Output Total 200 ml Balance 650 ml Intake Oral 850 ml Output Urine Total 200 ml # Voids 2 Labs Labs Laboratory Tests Test 01/24/19 14:45 01/24/19 16:30 01/24/19 17:02 01/24/19 20:45 Plasma/Serum Osmolality 261 mOsmol/kg (280-301) Cortisol PM Sample 11.0 ug/dL (3.1-16.7) Urine Osmolality 386 mOsmol/kg (.) Glucose (Fingerstick) 125 mg/dL (70-99) 112 mg/dL (70-99) Test 01/25/19 04:50 01/25/19 07:16 01/25/19 10:59 Sodium Level 126 mmol/L (136-145) Potassium Level 4.3 mmol/L (3.5-5.1) Chloride Level 92 mmol/L (98-107) Carbon Dioxide Level 26 mmol/L (21-32) Anion Gap 8 (6-14) Blood Urea Nitrogen 9 mg/dL (8-26) Creatinine 1.3 mg/dL (0.7-1.3) Estimated GFR (Cockcroft-Gault) 54.6 BUN/Creatinine Ratio 7 (6-20) Glucose Level 117 mg/dL (70-99) Calcium Level 9.3 mg/dL (8.5-10.1) Total Bilirubin 0.9 mg/dL (0.2-1.0) Aspartate Amino Transf (AST/SGOT) 43 U/L (15-37) Alanine Aminotransferase (ALT/SGPT) 35 U/L (16-63) Alkaline Phosphatase 42 U/L (46-116) Total Protein 7.8 g/dL (6.4-8.2) Albumin 3.8 g/dL (3.4-5.0) Albumin/Globulin Ratio 1.0 (1.0-1.7) Glucose (Fingerstick) 124 mg/dL (70-99) 160 mg/dL (70-99) Review of Systems Constitutional: yes: other (UNABLE TO OBTAIN) Physical Exam General Appearance: no apparent distress Skin: warm Respiratory: decreased breath sounds Heart: S1S2 Abdomen: soft Genitourinary: bladder flat Extremities: pulses present Neurology: alert Assessment Assessment IMP [id number] OF 126 HYPOTHYROIDISM DM II PLAN LOW FLOW ISOTONIC SALINE THYROID REPLACEMENT EXPECT NA TO IMPROVE IN TIME WITH THYROID REPLACEMENT ENDER GONZALEZ MD Jan 25, 2019 13:36
[2019-01-25 15:00] VITALS: BP 159/79
[2019-01-25 19:15] VITALS: BP 104/63
[2019-01-25 23:13] VITALS: BP 130/63
[2019-01-26 03:40] VITALS: BP 116/61
[2019-01-26 04:57] LABS: BASO % 0 % (0-3); EOS # 0.1 x10^3/uL (0.0-0.7); EOS % 3 % (0-3); HEMATOCRIT 37.9 % (39.0-53.0); HEMOGLOBIN 12.9 g/dL (13.0-17.5); LYMPH # 1.5 x10^3/uL (1.0-4.8); LYMPH % 25 % (24-48); MEAN CORPUSCULAR HEMOGLOBIN 29 pg (25-35); MEAN CORPUSCULAR HGB CONC 34 g/dL (31-37); MEAN CORPUSCULAR VOLUME 85 fL (79-100); MONO # 0.5 x10^3/uL (0.0-1.1); MONO % 8 % (0-9); NEUT # 3.8 x10^3/uL (1.8-7.7); NEUT % 64 % (31-73); PLATELET COUNT 241 x10^3/uL (140-400); RED BLOOD COUNT 4.47 x10^6/uL (4.30-5.70); RED CELL DISTRIBUTION WIDTH 15.8 % (11.5-14.5); WHITE BLOOD COUNT 5.9 x10^3/uL (4.0-11.0)
[2019-01-26 05:23] LABS: ALBUMIN 3.8 g/dL (3.4-5.0); CALCIUM 9.1 mg/dL (8.5-10.1); CREATININE 1.3 mg/dL (0.7-1.3); GFR 54.6; TOTAL BILIRUBIN 0.8 mg/dL (0.2-1.0); TOTAL PROTEIN 7.8 g/dL (6.4-8.2)
[2019-01-26] MEDS: LEVOTHYROXINE 150 MCG TABLET PO SCH (06:27)
[2019-01-26] MEDS: PANTOPRAZOLE 40 MG TABLET.DR. PO SCH (06:27)
[2019-01-26 07:00] VITALS: BP 109/53
[2019-01-26] MEDS ORDERED: traMADol 50 MG TABLET PO PRN (08:45)
[2019-01-26] MEDS: POLYETHYLENE GLYCOL 3350 17 GM PACKET. PO SCH (09:00)
--- NOTE | 2019-01-26 10:41 | PDOC ---
Renal-Progress Notes Subjective Notes Notes NONE History of Present Illness Hx of present illness NO CHANGE Vitals Vitals Vital Signs Date Time Temp Pulse Resp B/P (MAP) Pulse Ox O2 Delivery O2 Flow Rate FiO2 01/26/19 08:00 Room Air 01/26/19 07:00 98.1 61 14 109/53 (71) 98 98.1 Weight Weight [ ] I.O. Intake and Output Intake and Output 01/26/19 07:00 Intake Total 240 ml Output Total 250 ml Balance -10 ml Intake Oral 240 ml Output Urine Total 250 ml # Voids 3 Labs Labs Laboratory Tests Test 01/25/19 10:59 01/25/19 16:51 01/25/19 21:25 01/26/19 03:15 Glucose (Fingerstick) 160 mg/dL (70-99) 86 mg/dL (70-99) 89 mg/dL (70-99) White Blood Count 5.9 x10^3/uL (4.0-11.0) Red Blood Count 4.47 x10^6/uL (4.30-5.70) Hemoglobin 12.9 g/dL (13.0-17.5) Hematocrit 37.9 % (39.0-53.0) Mean Corpuscular Volume 85 fL (79-100) Mean Corpuscular Hemoglobin 29 pg (25-35) Mean Corpuscular Hemoglobin Concent 34 g/dL (31-37) Red Cell Distribution Width 15.8 % (11.5-14.5) Platelet Count 241 x10^3/uL (140-400) Neutrophils (%) (Auto) 64 % (31-73) Lymphocytes (%) (Auto) 25 % (24-48) Monocytes (%) (Auto) 8 % (0-9) Eosinophils (%) (Auto) 3 % (0-3) Basophils (%) (Auto) 0 % (0-3) Neutrophils # (Auto) 3.8 x10^3/uL (1.8-7.7) Lymphocytes # (Auto) 1.5 x10^3/uL (1.0-4.8) Monocytes # (Auto) 0.5 x10^3/uL (0.0-1.1) Eosinophils # (Auto) 0.1 x10^3/uL (0.0-0.7) Basophils # (Auto) 0.0 x10^3/uL (0.0-0.2) Sodium Level 131 mmol/L (136-145) Potassium Level 4.0 mmol/L (3.5-5.1) Chloride Level 95 mmol/L (98-107) Carbon Dioxide Level 28 mmol/L (21-32) Anion Gap 8 (6-14) Blood Urea Nitrogen 10 mg/dL (8-26) Creatinine 1.3 mg/dL (0.7-1.3) Estimated GFR (Cockcroft-Gault) 54.6 BUN/Creatinine Ratio 8 (6-20) Glucose Level 102 mg/dL (70-99) Calcium Level 9.1 mg/dL (8.5-10.1) Total Bilirubin 0.8 mg/dL (0.2-1.0) Aspartate Amino Transf (AST/SGOT) 32 U/L (15-37) Alanine Aminotransferase (ALT/SGPT) 30 U/L (16-63) Alkaline Phosphatase 48 U/L (46-116) Total Protein 7.8 g/dL (6.4-8.2) Albumin 3.8 g/dL (3.4-5.0) Albumin/Globulin Ratio 1.0 (1.0-1.7) Test 01/26/19 07:57 Glucose (Fingerstick) 120 mg/dL (70-99) Review of Systems Constitutional: yes: other (UNABLE TO OBTAIN) Physical Exam General Appearance: no apparent distress Skin: warm Respiratory: decreased breath sounds Heart: S1S2 Abdomen: soft Genitourinary: bladder flat Extremities: pulses present Neurology: alert Assessment Assessment IMP [id number] OF 131 HYPOTHYROIDISM DM II PLAN LOW FLOW ISOTONIC SALINE THYROID REPLACEMENT EXPECT NA TO IMPROVE IN TIME WITH THYROID REPLACEMENT I WILL SIGN OFF ENDER GONZALEZ MD Jan 26, 2019 10:41
[2019-01-26 11:00] VITALS: BP 118/69
--- NOTE | 2019-01-26 11:01 | PDOC2 ---
CONSULT Date of Consult Date of Consult DATE: 01/26/19 TIME: 10:53 Reason for Consult Reason for Consult: cholelithiasis Referring Physician Referring Physician: SOHAIL Identification/Chief Complaint Chief Complaint RUQ burning Source Source: Caregiver (son at bedside translates), Chart review History of Present Illness Reason for Visit: Mr Saleem is a 68 yo diabetic who presented with some burning discomfort in the RUQ CT and US showed stones in the absence of acute inflammatory changes He was also quite hyponatremic and hypothyroid Past Medical History Cardiovascular: No pertinent hx Pulmonary: No pertinent hx GI: No pertinent hx Heme/Onc: No pertinent hx Hepatobiliary: No pertinent hx Psych: No pertinent hx Infectious disease: No pertinent hx Endocrine: Diabetes Past Surgical History Past Surgical History: No pertinent history Family History Family History: No Significant Social History No ALCOHOL: none Drugs: None Current Problem List Problem List Problems Medical Problems: (1) Chest pain Status: Acute (2) Cholelithiasis Status: Chronic (3) Diabetes mellitus Status: Chronic (4) Hyponatremia Status: Acute (5) Hypothyroidism Status: Chronic Current Medications Current Medications Current Medications Fentanyl Citrate (Fentanyl 2ml Vial) 25 mcg PRN Q15MIN PRN IV PAIN GREATER THAN 3/10 Last administered on 01/22/19at 18:08; Start 01/22/19 at 17:15; Stop 01/23/19 at 17:14; Status DC Sodium Chloride 1,000 ml @ 1,000 mls/hr Q1H IV ; Start 01/22/19 at 17:10; Stop 01/22/19 at 18:09; Status DC Sodium Chloride (Normal Saline Flush) 10 ml QSHIFT PRN IV AFTER MEDS AND BLOOD DRAWS; Start 01/22/19 at 17:15 Ondansetron HCl (Zofran) 4 mg 1X ONCE IV Last administered on 01/22/19at 18:07; Start 01/22/19 at 17:15; Stop 01/22/19 at 17:27; Status DC Famotidine (Pepcid Vial) 20 mg 1X ONCE IVP Last administered on 01/22/19at 18:08; Start 01/22/19 at 17:15; Stop 01/22/19 at 17:27; Status DC Iohexol (Omnipaque 300 Mg/ml) 60 ml 1X ONCE IV Last administered on 01/22/19at 18:03; Start 01/22/19 at 18:00; Stop 01/22/19 at 18:01; Status DC Info (CONTRAST GIVEN -- Rx MONITORING) 1 each PRN DAILY PRN MC SEE COMMENTS; Start 01/22/19 at 18:00; Stop 01/24/19 at 17:59; Status DC Sodium Chloride 1,000 ml @ 150 mls/hr 1X ONCE IV Last administered on 01/22/19at 19:00; Start 01/22/19 at 19:00; Stop 01/23/19 at 02:44; Status DC Ondansetron HCl (Zofran) 4 mg PRN Q8HRS PRN IV NAUSEA/VOMITING; Start 01/22/19 at 19:00; Stop 01/22/19 at 19:32; Status DC Morphine Sulfate (Morphine Sulfate) 2 mg PRN Q2HR PRN IV PAIN; Start 01/22/19 at 19:00; Stop 01/23/19 at 18:59; Status DC Sodium Chloride 1,000 ml @ 150 mls/hr Q6H40M IV Last administered on 01/23/19at 01:54; Start 01/22/19 at 18:56; Stop 01/23/19 at 02:44; Status DC Ondansetron HCl (Zofran) 4 mg PRN Q6HRS PRN IV NAUSEA/VOMITING Last administered on 01/24/19at 03:16; Start 01/22/19 at 19:30 Enoxaparin Sodium (Lovenox 40mg Syringe) 40 mg DAILY ONCE SQ Last administered on 01/22/19at 21:20; Start 01/22/19 at 20:00; Stop 01/22/19 at 20:01; Status DC Enoxaparin Sodium (Lovenox 40mg Syringe) 40 mg STK-MED ONCE SQ ; Start 01/22/19 at 21:19; Stop 01/22/19 at 21:19; Status DC Sodium Chloride 1,000 ml @ 30 mls/hr Q24H IV Last administered on 01/25/19at 14:53; Start 01/23/19 at 02:45 Polyethylene Glycol (miraLAX PACKET) 17 gm DAILY PO Last administered on 01/25/19at 08:48; Start 01/23/19 at 09:00 Levothyroxine Sodium (Synthroid) 150 mcg DAILY06 PO Last administered on 01/26/19at 06:28; Start 01/23/19 at 14:00 Bisacodyl (Dulcolax Supp) 10 mg 1X ONCE VT ; Start 01/24/19 at 12:15; Stop 01/24/19 at 12:16; Status DC Mineral Oil (Fleet Mineral Oil) 133 ml PRN 1X PRN VT IF NO RESULTS FROM BISACODYL; Start 01/24/19 at 12:15; Stop 01/24/19 at 23:00; Status DC Pantoprazole Sodium (Protonix) 40 mg DAILYAC PO Last administered on 01/26/19at 06:28; Start 01/25/19 at 07:30 Tramadol HCl (Ultram) 50 mg PRN Q6HRS PRN PO MLID TO MODERATE PAIN; Start 01/26/19 at 08:45 Active Scripts Active Reported Zoloft (Sertraline Hcl) 50 Mg Tablet 1 Tab PO DAILY Atorvastatin Calcium 20 Mg Tablet 1 Tab PO DAILY Lisinopril 2.5 Mg Tablet 1 Tab PO DAILY Cetirizine Hcl 10 Mg Tablet 1 Tab PO DAILY Zofran (Ondansetron Hcl) 8 Mg Tablet 1 Tab PO Q8HRS 10 Days Metformin Hcl 500 Mg Tablet 500 Mg PO BIDWMEALS Levothyroxine Sodium 125 Mcg Tablet 1 Tab PO DAILY PRN Allergies Allergies: Coded Allergies: No Known Drug Allergies (Unverified , 01/22/19) ROS Review of System limited 2/2 language issue, but per son negative with exception of present complaint Physical Exam General: Alert, No acute distress HEENT: Atraumatic, Other (hearing aid left ear) Heart: Regular rate Abdomen: Soft, No tenderness Skin: Other (warm, dry) Vitals VITALS Vital Signs Date Time Temp Pulse Resp B/P (MAP) Pulse Ox O2 Delivery O2 Flow Rate FiO2 01/26/19 08:00 Room Air 01/26/19 07:00 98.1 61 14 109/53 (71) 98 98.1 Labs Labs Laboratory Tests Test 01/24/19 11:43 01/24/19 14:45 01/24/19 16:30 01/24/19 17:02 Glucose (Fingerstick) 125 mg/dL (70-99) 125 mg/dL (70-99) Plasma/Serum Osmolality 261 mOsmol/kg (280-301) Cortisol PM Sample 11.0 ug/dL (3.1-16.7) Urine Osmolality 386 mOsmol/kg (.) Test 01/24/19 20:45 01/25/19 04:50 01/25/19 07:16 01/25/19 10:59 Glucose (Fingerstick) 112 mg/dL (70-99) 124 mg/dL (70-99) 160 mg/dL (70-99) Sodium Level 126 mmol/L (136-145) Potassium Level 4.3 mmol/L (3.5-5.1) Chloride Level 92 mmol/L (98-107) Carbon Dioxide Level 26 mmol/L (21-32) Anion Gap 8 (6-14) Blood Urea Nitrogen 9 mg/dL (8-26) Creatinine 1.3 mg/dL (0.7-1.3) Estimated GFR (Cockcroft-Gault) 54.6 BUN/Creatinine Ratio 7 (6-20) Glucose Level 117 mg/dL (70-99) Calcium Level 9.3 mg/dL (8.5-10.1) Total Bilirubin 0.9 mg/dL (0.2-1.0) Aspartate Amino Transf (AST/SGOT) 43 U/L (15-37) Alanine Aminotransferase (ALT/SGPT) 35 U/L (16-63) Alkaline Phosphatase 42 U/L (46-116) Total Protein 7.8 g/dL (6.4-8.2) Albumin 3.8 g/dL (3.4-5.0) Albumin/Globulin Ratio 1.0 (1.0-1.7) Test 01/25/19 16:51 01/25/19 21:25 01/26/19 03:15 01/26/19 07:57 Glucose (Fingerstick) 86 mg/dL (70-99) 89 mg/dL (70-99) 120 mg/dL (70-99) White Blood Count 5.9 x10^3/uL (4.0-11.0) Red Blood Count 4.47 x10^6/uL (4.30-5.70) Hemoglobin 12.9 g/dL (13.0-17.5) Hematocrit 37.9 % (39.0-53.0) Mean Corpuscular Volume 85 fL (79-100) Mean Corpuscular Hemoglobin 29 pg (25-35) Mean Corpuscular Hemoglobin Concent 34 g/dL (31-37) Red Cell Distribution Width 15.8 % (11.5-14.5) Platelet Count 241 x10^3/uL (140-400) Neutrophils (%) (Auto) 64 % (31-73) Lymphocytes (%) (Auto) 25 % (24-48) Monocytes (%) (Auto) 8 % (0-9) Eosinophils (%) (Auto) 3 % (0-3) Basophils (%) (Auto) 0 % (0-3) Neutrophils # (Auto) 3.8 x10^3/uL (1.8-7.7) Lymphocytes # (Auto) 1.5 x10^3/uL (1.0-4.8) Monocytes # (Auto) 0.5 x10^3/uL (0.0-1.1) Eosinophils # (Auto) 0.1 x10^3/uL (0.0-0.7) Basophils # (Auto) 0.0 x10^3/uL (0.0-0.2) Sodium Level 131 mmol/L (136-145) Potassium Level 4.0 mmol/L (3.5-5.1) Chloride Level 95 mmol/L (98-107) Carbon Dioxide Level 28 mmol/L (21-32) Anion Gap 8 (6-14) Blood Urea Nitrogen 10 mg/dL (8-26) Creatinine 1.3 mg/dL (0.7-1.3) Estimated GFR (Cockcroft-Gault) 54.6 BUN/Creatinine Ratio 8 (6-20) Glucose Level 102 mg/dL (70-99) Calcium Level 9.1 mg/dL (8.5-10.1) Total Bilirubin 0.8 mg/dL (0.2-1.0) Aspartate Amino Transf (AST/SGOT) 32 U/L (15-37) Alanine Aminotransferase (ALT/SGPT) 30 U/L (16-63) Alkaline Phosphatase 48 U/L (46-116) Total Protein 7.8 g/dL (6.4-8.2) Albumin 3.8 g/dL (3.4-5.0) Albumin/Globulin Ratio 1.0 (1.0-1.7) Laboratory Tests Test 01/25/19 10:59 01/25/19 16:51 01/25/19 21:25 01/26/19 03:15 Glucose (Fingerstick) 160 mg/dL (70-99) 86 mg/dL (70-99) 89 mg/dL (70-99) White Blood Count 5.9 x10^3/uL (4.0-11.0) Red Blood Count 4.47 x10^6/uL (4.30-5.70) Hemoglobin 12.9 g/dL (13.0-17.5) Hematocrit 37.9 % (39.0-53.0) Mean Corpuscular Volume 85 fL (79-100) Mean Corpuscular Hemoglobin 29 pg (25-35) Mean Corpuscular Hemoglobin Concent 34 g/dL (31-37) Red Cell Distribution Width 15.8 % (11.5-14.5) Platelet Count 241 x10^3/uL (140-400) Neutrophils (%) (Auto) 64 % (31-73) Lymphocytes (%) (Auto) 25 % (24-48) Monocytes (%) (Auto) 8 % (0-9) Eosinophils (%) (Auto) 3 % (0-3) Basophils (%) (Auto) 0 % (0-3) Neutrophils # (Auto) 3.8 x10^3/uL (1.8-7.7) Lymphocytes # (Auto) 1.5 x10^3/uL (1.0-4.8) Monocytes # (Auto) 0.5 x10^3/uL (0.0-1.1) Eosinophils # (Auto) 0.1 x10^3/uL (0.0-0.7) Basophils # (Auto) 0.0 x10^3/uL (0.0-0.2) Sodium Level 131 mmol/L (136-145) Potassium Level 4.0 mmol/L (3.5-5.1) Chloride Level 95 mmol/L (98-107) Carbon Dioxide Level 28 mmol/L (21-32) Anion Gap 8 (6-14) Blood Urea Nitrogen 10 mg/dL (8-26) Creatinine 1.3 mg/dL (0.7-1.3) Estimated GFR (Cockcroft-Gault) 54.6 BUN/Creatinine Ratio 8 (6-20) Glucose Level 102 mg/dL (70-99) Calcium Level 9.1 mg/dL (8.5-10.1) Total Bilirubin 0.8 mg/dL (0.2-1.0) Aspartate Amino Transf (AST/SGOT) 32 U/L (15-37) Alanine Aminotransferase (ALT/SGPT) 30 U/L (16-63) Alkaline Phosphatase 48 U/L (46-116) Total Protein 7.8 g/dL (6.4-8.2) Albumin 3.8 g/dL (3.4-5.0) Albumin/Globulin Ratio 1.0 (1.0-1.7) Test 01/26/19 07:57 Glucose (Fingerstick) 120 mg/dL (70-99) Images Images CT and US reviewed Assessment/Plan Assessment/Plan cholelithiasis, possible sx? diabetes discussed options with Mr Saleem via his son's translation of observation/expectant treatment vs proceeding with cholecystectomy he prefers the former as such, no current surgical recs happy to follow in office as outpatient Thanks for consult YUMIKO TOLEDO MD Jan 26, 2019 11:01
[2019-01-26] MEDS: IV NORMAL SALINE 1000ML BAG 1,000 ML IV SCH (11:21)
[2019-01-26] MEDS ORDERED: PANT40TA77 PO (11:41)
[2019-01-26] MEDS ORDERED: LEVO150T PO (11:41)
--- NOTE | 2019-01-26 11:48 | PDOC3 ---
Discharge Summary Visit Information Date of Admission: Jan 22, 2019 Date of Discharge: Jan 26, 2019 Admitting Diagnosis Comment: he is an male who was admitted for hyponatremia 120s, co managed with renal IVF, BUT also supposed to be on synthroid 125 mcg, im unsure if he is taking (I resume care on day of dc) and colleague has inc his dose to 150 mcg. HIS TSH is 58!!! HE is also on low dose lisinopril 2.5 and zoloft (which i really think he doesnt need). BP good, And he does not look depresses at all - dw son at bedside who translates Dc to home with son, TAKE YOUR SYNTHROID, STOP lisinopril and zoloft ( as can cause hyponat), re check TSH, t4, t3 6-8 weeks SOme epig pain and US done showed cholelith so i consulted gS - okay to ff up as OP and elective LS if needed Dc with NA 131 Final Diagnosis Problems Medical Problems: (1) Chest pain Status: Acute (2) Cholelithiasis Status: Chronic (3) Diabetes mellitus Status: Chronic (4) Hyponatremia Status: Acute (5) Hypothyroidism Status: Chronic Brief Hospital Course Allergies Allergies Coded Allergies Type Severity Reaction Last Updated Verified No Known Drug Allergies 01/22/19 No Vital Signs Vital Signs Date Time Temp Pulse Resp B/P (MAP) Pulse Ox O2 Delivery O2 Flow Rate FiO2 01/26/19 08:00 Room Air 01/26/19 07:00 98.1 61 14 109/53 (71) 98 98.1 Lab Results Laboratory Tests Test 01/24/19 14:45 01/24/19 16:30 01/24/19 17:02 01/24/19 20:45 Plasma/Serum Osmolality 261 mOsmol/kg (280-301) Cortisol PM Sample 11.0 ug/dL (3.1-16.7) Urine Osmolality 386 mOsmol/kg (.) Glucose (Fingerstick) 125 mg/dL (70-99) 112 mg/dL (70-99) Test 01/25/19 04:50 01/25/19 07:16 01/25/19 10:59 01/25/19 16:51 Sodium Level 126 mmol/L (136-145) Potassium Level 4.3 mmol/L (3.5-5.1) Chloride Level 92 mmol/L (98-107) Carbon Dioxide Level 26 mmol/L (21-32) Anion Gap 8 (6-14) Blood Urea Nitrogen 9 mg/dL (8-26) Creatinine 1.3 mg/dL (0.7-1.3) Estimated GFR (Cockcroft-Gault) 54.6 BUN/Creatinine Ratio 7 (6-20) Glucose Level 117 mg/dL (70-99) Calcium Level 9.3 mg/dL (8.5-10.1) Total Bilirubin 0.9 mg/dL (0.2-1.0) Aspartate Amino Transf (AST/SGOT) 43 U/L (15-37) Alanine Aminotransferase (ALT/SGPT) 35 U/L (16-63) Alkaline Phosphatase 42 U/L (46-116) Total Protein 7.8 g/dL (6.4-8.2) Albumin 3.8 g/dL (3.4-5.0) Albumin/Globulin Ratio 1.0 (1.0-1.7) Glucose (Fingerstick) 124 mg/dL (70-99) 160 mg/dL (70-99) 86 mg/dL (70-99) Test 01/25/19 21:25 01/26/19 03:15 01/26/19 07:57 Glucose (Fingerstick) 89 mg/dL (70-99) 120 mg/dL (70-99) White Blood Count 5.9 x10^3/uL (4.0-11.0) Red Blood Count 4.47 x10^6/uL (4.30-5.70) Hemoglobin 12.9 g/dL (13.0-17.5) Hematocrit 37.9 % (39.0-53.0) Mean Corpuscular Volume 85 fL (79-100) Mean Corpuscular Hemoglobin 29 pg (25-35) Mean Corpuscular Hemoglobin Concent 34 g/dL (31-37) Red Cell Distribution Width 15.8 % (11.5-14.5) Platelet Count 241 x10^3/uL (140-400) Neutrophils (%) (Auto) 64 % (31-73) Lymphocytes (%) (Auto) 25 % (24-48) Monocytes (%) (Auto) 8 % (0-9) Eosinophils (%) (Auto) 3 % (0-3) Basophils (%) (Auto) 0 % (0-3) Neutrophils # (Auto) 3.8 x10^3/uL (1.8-7.7) Lymphocytes # (Auto) 1.5 x10^3/uL (1.0-4.8) Monocytes # (Auto) 0.5 x10^3/uL (0.0-1.1) Eosinophils # (Auto) 0.1 x10^3/uL (0.0-0.7) Basophils # (Auto) 0.0 x10^3/uL (0.0-0.2) Sodium Level 131 mmol/L (136-145) Potassium Level 4.0 mmol/L (3.5-5.1) Chloride Level 95 mmol/L (98-107) Carbon Dioxide Level 28 mmol/L (21-32) Anion Gap 8 (6-14) Blood Urea Nitrogen 10 mg/dL (8-26) Creatinine 1.3 mg/dL (0.7-1.3) Estimated GFR (Cockcroft-Gault) 54.6 BUN/Creatinine Ratio 8 (6-20) Glucose Level 102 mg/dL (70-99) Calcium Level 9.1 mg/dL (8.5-10.1) Total Bilirubin 0.8 mg/dL (0.2-1.0) Aspartate Amino Transf (AST/SGOT) 32 U/L (15-37) Alanine Aminotransferase (ALT/SGPT) 30 U/L (16-63) Alkaline Phosphatase 48 U/L (46-116) Total Protein 7.8 g/dL (6.4-8.2) Albumin 3.8 g/dL (3.4-5.0) Albumin/Globulin Ratio 1.0 (1.0-1.7) Laboratory Tests Test 01/25/19 16:51 01/25/19 21:25 01/26/19 03:15 01/26/19 07:57 Glucose (Fingerstick) 86 mg/dL (70-99) 89 mg/dL (70-99) 120 mg/dL (70-99) White Blood Count 5.9 x10^3/uL (4.0-11.0) Red Blood Count 4.47 x10^6/uL (4.30-5.70) Hemoglobin 12.9 g/dL (13.0-17.5) Hematocrit 37.9 % (39.0-53.0) Mean Corpuscular Volume 85 fL (79-100) Mean Corpuscular Hemoglobin 29 pg (25-35) Mean Corpuscular Hemoglobin Concent 34 g/dL (31-37) Red Cell Distribution Width 15.8 % (11.5-14.5) Platelet Count 241 x10^3/uL (140-400) Neutrophils (%) (Auto) 64 % (31-73) Lymphocytes (%) (Auto) 25 % (24-48) Monocytes (%) (Auto) 8 % (0-9) Eosinophils (%) (Auto) 3 % (0-3) Basophils (%) (Auto) 0 % (0-3) Neutrophils # (Auto) 3.8 x10^3/uL (1.8-7.7) Lymphocytes # (Auto) 1.5 x10^3/uL (1.0-4.8) Monocytes # (Auto) 0.5 x10^3/uL (0.0-1.1) Eosinophils # (Auto) 0.1 x10^3/uL (0.0-0.7) Basophils # (Auto) 0.0 x10^3/uL (0.0-0.2) Sodium Level 131 mmol/L (136-145) Potassium Level 4.0 mmol/L (3.5-5.1) Chloride Level 95 mmol/L (98-107) Carbon Dioxide Level 28 mmol/L (21-32) Anion Gap 8 (6-14) Blood Urea Nitrogen 10 mg/dL (8-26) Creatinine 1.3 mg/dL (0.7-1.3) Estimated GFR (Cockcroft-Gault) 54.6 BUN/Creatinine Ratio 8 (6-20) Glucose Level 102 mg/dL (70-99) Calcium Level 9.1 mg/dL (8.5-10.1) Total Bilirubin 0.8 mg/dL (0.2-1.0) Aspartate Amino Transf (AST/SGOT) 32 U/L (15-37) Alanine Aminotransferase (ALT/SGPT) 30 U/L (16-63) Alkaline Phosphatase 48 U/L (46-116) Total Protein 7.8 g/dL (6.4-8.2) Albumin 3.8 g/dL (3.4-5.0) Albumin/Globulin Ratio 1.0 (1.0-1.7) Brief Hospital Course Mr. Saleem is a 68 old [sex] who presented with [ ] Discharge Information Condition at Discharge: Improved, Stable Follow Up: Weeks (2 mos pcp re rpt tsh, t4, t3) Disposition/Orders: D/C to Home Scheduled Atorvastatin Calcium (Atorvastatin Calcium) 20 Mg Tablet, 1 TAB PO DAILY for HLD, #30 Ref 5 (Reported) Entered as Reported by: AKILAH SHELDON RN on 01/22/192020 Last Taken: Unknown Dose on 01/21/19 Last Action: New Order on 01/22/192020 by AKILAH SHELDON RN Cetirizine Hcl (Cetirizine Hcl) 10 Mg Tablet, 1 TAB PO DAILY for allergies, #30 Ref 5 (Reported) Entered as Reported by: AKILAH SHELDON RN on 01/22/192020 Last Taken: Unknown Dose on 01/22/19 Last Action: New Order on 01/22/192020 by AKILAH SHELDON RN Levothyroxine Sodium (Synthroid) 150 Mcg Tablet, 150 MCG PO DAILY06 for hypothyrodism, #60 Prescribed by: FELIEP VIEIRA on 01/26/19 1141 Lisinopril (Lisinopril) 2.5 Mg Tablet, 1 TAB PO DAILY for HTN, #30 Ref 5 (Reported) Entered as Reported by: AKILAH SHELDON RN on 01/22/192020 Last Taken: Unknown Dose on 01/15/19 Last Action: New Order on 01/22/192020 by AKILAH SHELDON RN Metformin Hcl (Metformin Hcl) 500 Mg Tablet, 500 MG PO BIDWMEALS for ANTI- DIABETIC, Ref 0 (Reported) Entered as Reported by: AKILAH SHELDON RN on 01/22/192020 Last Taken: Unknown Dose on 01/15/19 Last Action: New Order on 01/22/192020 by AKILAH SHELDON RN Ondansetron Hcl (Zofran) 8 Mg Tablet, 1 TAB PO Q8HRS for nausea for 10 Days, #30 (Reported) Entered as Reported by: AKILAH SHELDON RN on 01/22/192020 Last Taken: Unknown Dose on 01/22/19 Last Action: New Order on 01/22/192020 by AKILAH SHELDON RN Pantoprazole Sodium (Pantoprazole Sodium ) 40 Mg Tablet.dr, 40 MG PO DAILYAC for gerd, #60 Prescribed by: FELIPE VIEIRA on 01/26/19 1141 Sertraline Hcl (Zoloft) 50 Mg Tablet, 1 TAB PO DAILY for depression, #30 Ref 2 (Reported) Entered as Reported by: AKILAH SHELDON RN on 01/22/192020 Last Taken: Unknown Dose on 01/21/19 Last Action: New Order on 01/22/192020 by AKILAH SHELDON RN Scheduled PRN Levothyroxine Sodium (Levothyroxine Sodium) 125 Mcg Tablet, 1 TAB PO DAILY PRN for maintenance, #30 Ref 5 (Reported) Entered as Reported by: AKILAH SHELDON RN on 01/22/192020 Last Taken: Unknown Dose on 01/22/19 Last Action: New Order on 01/22/192020 by PATTI BALDWIN CHERRIE Y MD Jan 26, 2019 11:48
--- NOTE | 2019-01-26 12:29 | PDOC ---
Subjective: Subjective: Per son - tolerating PO, no abd pain, going home. Objective: Vital Signs: Vital Signs Date Time Temp Pulse Resp B/P (MAP) Pulse Ox O2 Delivery O2 Flow Rate FiO2 01/26/19 08:00 Room Air 01/26/19 07:00 98.1 61 14 109/53 (71) 98 98.1 Labs: Laboratory Tests Test 01/25/19 16:51 01/25/19 21:25 01/26/19 07:57 Glucose (Fingerstick) 86 mg/dL (70-99) 89 mg/dL (70-99) 120 mg/dL (70-99) Imaging: Abd US 01/25 IMPRESSION: 1. Cholelithiasis. There is no convincing superimposed cholecystitis. 2. Right renal cysts. 3. Suspected hepatic steatosis. PE: GEN: NAD - was crawling on floor looking for something NEURO/PSYCH: A & O, doesn't speak Hungarian A/P: Burning upper abd pain - resolved, past EGD in [place] Cholelithiasis Hypothyroidism -- DC per primary on PPI. DAVIDA CUTLER Jan 26, 2019 12:29
== END 2019-01-26 12:30 | disposition home or self-care (01) | DRG 445 ==
LOC: ER 16:48 → 1 WEST ICU 18:00 → 4 NORTH 01-23 17:00
PROVIDERS: ADMIT Internal Medicine; ATTEND Internal Medicine
DX: K80.20 Calculus of gallbladder without cholecystitis without obstruction (principal); E87.1 Hypo-osmolality and hyponatremia; N32.3 Diverticulum of bladder; E03.9 Hypothyroidism, unspecified; E11.9 Type 2 diabetes mellitus without complications; E78.00 Pure hypercholesterolemia, unspecified; E78.5 Hyperlipidemia, unspecified; E86.0 Dehydration; I10 Essential (primary) hypertension; N28.1 Cyst of kidney, acquired; R13.10 Dysphagia, unspecified; F32.9 Major depressive disorder, single episode, unspecified
CPT/HCPCS: 36415; 70450; 71046; 74177; 76705; 80048; 80053; 81001; 82533; 82962; 83690; 83880; 83930; 83935; 84443; 84484; 85025; 93005; 96361; 96374; 96375; J1650; J2405; J3010; J3490; J7030; Q9967; 99285-25; G0378

== ENCOUNTER → 2019-07-18 | Outpatient (CLI) | payer MEDICARE ==
[~2019-07-18] MED LIST: ATOR20TA58 PO; CETI10TA16 PO; LEVO125T5 PO; LEVO150T PO; LISI2.5T PO; METF500T16 PO; ONDA8TAB9 PO; PANT40TA77 PO; SERT50TA PO
--- NOTE | 2019-07-18 09:14 | RAD ---
CT CHEST WO CONTRAST INDICATION: Pulmonary nodule. COMPARISON STUDY: CT abdomen pelvis 01/22/2019. TECHNIQUE: Unenhanced axial images were obtained through the lungs and upper abdomen. Coronal and sagittal multiplanar reconstructions were also obtained. PQRS compliance statement: One or more of the following individualized dose reduction techniques were utilized for this examination: 1. Automated exposure control 2. Adjustment of the mA and/or kV according to patient size 3. Use of iterative reconstruction technique FINDINGS: Lungs and Airways: Right lower lobe subpleural nodule measuring 8 mm is stable from the prior exam when measured in the same fashion (series 3 image 176). Few additional small pulmonary nodules, for example stable 4 mm middle lobe subpleural nodule (series 3 image 146) and 5 mm right lower lobe subpleural nodule (image 103). Bronchial wall thickening. Endobronchial mucous plugging. Mild centrilobular emphysema. Pleura: The pleural spaces are normal. Heart and Mediastinum: Atrophic or surgically absent left thyroid. No axillary or supraclavicular lymphadenopathy. No mediastinal, hilar or retrocrural lymphadenopathy. Cardiomegaly. Coronary artery atherosclerotic disease. No pericardial effusion. Atherosclerosis of the thoracic aorta. Small hiatal hernia. Abdomen: Cholelithiasis. Bones and Soft Tissues: Degenerative changes of the spine. IMPRESSION: Stable small solid pulmonary nodules. Recommend additional follow-up unenhanced chest CT in 12-18 months to ensure long-term stability. Electronically signed by: Donovan Metcalf MD (07/18/2019 9:11 AM) [id number]
== END | disposition home or self-care (01) ==
LOC: CT 09:02
PROVIDERS: ATTEND Family Medicine
DX: R91.8 Other nonspecific abnormal finding of lung field (principal); J43.2 Centrilobular emphysema; J98.09 Other diseases of bronchus, not elsewhere classified; I51.7 Cardiomegaly; I25.10 Atherosclerotic heart disease of native coronary artery without angina pectoris; I70.0 Atherosclerosis of aorta; K80.20 Calculus of gallbladder without cholecystitis without obstruction; K44.9 Diaphragmatic hernia without obstruction or gangrene; M47.814 Spondylosis without myelopathy or radiculopathy, thoracic region
CPT/HCPCS: 71250